=== PATIENT | female | born 1985 | race Caucasian/White ===

== ENCOUNTER 2019-10-08 22:18 | Emergency (ER) | payer OTHER, SELFPAY ==
--- NOTE | ~2019-10-08 | XR_ITS ---
EXAMINATION: XR lumbar spine 2-3V DATE: 10/08/2019 23:36 INDICATION: Low back pain TECHNIQUE: Anteroposterior and lateral views of the lumbar spine, and cone-down lateral view of the l umbosacral junction were obtained. COMPARISON: MRI, 06/30/2014 FINDINGS: Is provided heights and alignment are normal. There is severe loss of intervertebral disc s pace height at L5-S1. Mild loss of intervertebral disc space height is present at L3-4. There is no f racture. Small degenerative osteophytes project from the anterior endplates of multiple vertebral bod ies. IMPRESSION: 1. Severe lumbar spondylosis at L5-S1 without acute findings or significant interval change. Reviewed, dictated and finalized at location A. IMPRESSION: 1. Severe lumbar spondylosis at L5-S1 without acute findings or significant int erval change.
--- NOTE | ~2019-10-08 | XR_ITS ---
EXAMINATION: XR knee LT min 4V DATE: 10/08/2019 23:36 INDICATION: Left knee pain TECHNIQUE: Four views of the left knee were obtained. COMPARISON: None. FINDINGS: Alignment is normal. No fracture or osteochondral lesion. There is mild tricompartmental os teoarthritis characterized by tiny marginal osteophytes. No joint effusion/synovitis. Soft tissues a re unremarkable. IMPRESSION: 1. No acute osseous abnormality. Reviewed, dictated and finalized at location A.
[2019-10-08 22:22] VITALS: BP 148/98; PULSE 78; RESP 18; TEMP 36.9; O2SAT 97
--- NOTE | 2019-10-08 23:07 | PC.NURSE ---
Received report from Vanesa, assumed care of this patient at this time.
[2019-10-08 23:09] LABS: Add Urine Microscopic? YES; Appearance Urine Clear (Clear); Bilirubin Urine Negative (Negative); Blood Urine Negative (Negative); Color Urine Straw (Yellow); Glucose Urine UA Negative (Negative); Ketones Urine Negative (Negative); Leukocyte Esterase Ur 2+ LEU/UL (Negative); Mucus Urine Rare /lpf; Nitrate Urine Negative (Negative); Protein Urine Negative (Negative); RBC Urine 0-2 /hpf (0-2); Specific Grav Ur 1.017 (1.001-1.035); Squamous Epithelial Cell Urine Moderate /hpf (Few); Urobilinogen Urine Negative mg/dL (<2.0); WBC Urine 0-3 /hpf
[2019-10-09 00:15] VITALS: BP 132/80; PULSE 70; RESP 18; O2SAT 98
--- NOTE | 2019-10-09 00:37 | ED.BACK ---
HPI - Back Pain/Injury General Chief Complaint: Back Pain/Injury Stated Complaint: lower back pain Time Seen by Provider: 10/08/19 22:28 Source: RN notes reviewed History of Present Illness HPI Narrative: Patient presents emergency department from home for low back pain. Patient states symptoms began 3 days ago. States the pain is in the bilateral lower back worse on the right than the left. Patient denies any known trauma or injury. States pain is worse with movement and bending. Patient does state that she had a history of back surgery in her lower back to remove 2 discs approximately 2 years ago and history of sciatica on the right. States that she will have flareups of her back pain intermittently she denies any fevers or chills abdominal pain numbness or tingling of the extremities bowel or bladder incontinence or any other symptoms. States she is taken no previous pain medication for the symptoms.. Patient does states she is been having some pain in her left knee over the past day and believes it may be secondary to walking differently secondary to her back pain denies any trauma or injury to the knee Related Data Home Medications Medication Instructions Recorded Confirmed Adult One Daily Multivitamin 1 tablet PO DAILY 10/08/19 10/08/19 albuterol sulfate INHALATION PRN 10/08/19 beclomethasone dipropionate [Qvar 2 inh INHALATION DAILY 10/08/19 10/08/19 RediHaler] calcium carbonate-vitamin D3 1 tablet PO DAILY 10/08/19 10/08/19 cyclobenzaprine 10 mg PO PRN 10/08/19 10/08/19 topiramate 50 mg PO HS 10/08/19 10/08/19 Allergies Allergy/AdvReac Type Severity Reaction Status Date / Time Penicillins Allergy Mild Rash Verified 12/07/18 00:03 Review of Systems Review of Systems: Narrative: Gen.: Denies fevers or chills ENT: Denies congestion Respiratory: Denies shortness of breath or cough CV: Denies chest pain or palpitations GI: Denies abdominal pain nausea, emesis or diarrhea denies bowel or bladder incontinence Musculoskeletal: See HPI Neuro: Denies numbness, tingling, weakness or focal weakness Skin: Denies rash Except as documented, all other systems reviewed and negative PMFSH Past Medical History Medical History (Updated 10/09/19 @ 00:41 by Eric Alves DO) Sciatica Surgical History Surgical History (Updated 10/09/19 @ 00:39 by Eric Alves DO) Previous back surgery Social History Social History (Updated 10/09/19 @ 00:38 by Eric Alves DO) Smoking status: Never smoker Exam Narrative: Exam Narrative: APPEARANCE: No acute distress, nontoxic, resting in bed Eyes: EOMI HEENT: Normocephalic, atraumatic, CV: Regular rate and rhythm without murmur RESPIRATORY: No respiratory distress. Clear to auscultation bilaterally. Abdomen: Soft and nontender, no rebound or guarding MUSCULOSKELETAl: Moves all extremities, no clubbing cyanosis or edema left knee is mildly tender over the lateral and anterior aspect, no swelling or ecchymosis no tenderness over the medial or posterior aspect, pain with flexion greater than 45 degrees, dorsalis pedis pulse 2+ neurovascular intact Back: No midline lumbar tenderness to palpation or step-off, tender to palpation over bilateral paravertebral muscles L3-5 , pain increased with forward flexion NEURO: Awake and alert. Following commands, speech normal, no focal deficits, muscle strength 5 out of 5 bilateral lower extremities, bilateral patellar reflex 2+ SKIN:: Warm, dry. Normal Color no rash or lesions Course Course Emergency Course: Discussed with patient results of workup and diagnosis. Discussed need for follow-up with primary care, proper use of medication, and reasons to return to the emergency department. Patient understands and agrees to current treatment plan Vital Signs Vital signs: Vital Signs Temperature 98.5 F 10/08/19 22:22 Pulse Rate 78 10/08/19 22:22 Respiratory Rate 18 10/08/19 22:22 Blood Pressure 148/98 H 10/08/19
== END 2019-10-09 01:03 | disposition home or self-care (01) ==
PROVIDERS: Emergency Provider Emergency Medicine; PCP Emergency Medicine
DX: M54.5 Low back pain (principal); M25.562 Pain in left knee
CPT/HCPCS: 72100; 73564; 81001; 81025; 99284; A9270

== ENCOUNTER 2020-01-20 16:52 | Emergency (ER) | payer OTHER, SELFPAY ==
[2020-01-20 17:43] VITALS: BP 147/80; PULSE 71; RESP 18; TEMP 36.5; O2SAT 100
--- NOTE | 2020-01-20 17:49 | ECG_ITS ---
Measurements Intervals [place] Rate: 65 P: 35 AL: 189 QRS: 23 QRSD: 90 T: 15 QT: 382 QTc: 398 Interpretive Statements SINUS RHYTHM NORMAL ECG Electronically Signed On 01-21-2020 6:50:40 CDT by Efrain Vyas D.O.
[2020-01-20 18:07] LABS: Basophils Percent Auto 0.2 % (0.2-1.2); Eosinophils Absolute Auto 0.1 K/mm3 (0-0.3); Eosinophils Percent Auto 0.6 % (0-4.4); Hematocrit 35.9 % (37.0-47.0); Hemoglobin 11.8 g/dL (12.0-15.0); Immature Granulocyte Absolute 0.02 K/mm3 (0.00-0.031); Immature Granulocyte Percent A 0.2 % (0-0.5); Lymphocytes Absolute Auto 1.94 K/mm3 (0.9-3.2); Lymphocytes Percent Auto 23.3 % (18.3-44.2); Mean Corpuscular HGB Conc 32.9 g/dl (32-36); Mean Corpuscular Hemoglobin 29.4 pg (26-34); Mean Corpuscular Volume 89.3 fl (80-100); Mean Platelet Volume 10.2 fl (7.4-10.4); Monocytes Absolute Auto 0.5 K/mm3 (0.1-0.6); Monocytes Percent Auto 5.8 % (2.6-8.5); Neutrophils Absolute Auto 5.8 K/mm3 (1.3-6.7); Neutrophils Percent Auto 69.9 % (45.5-73.1); Platelet Count Result 294 k/mm3 (150-375); Red Blood Count 4.02 M/mm3 (4.2-5.4); Red Cell Distribution Width 13.3 % (11.5-14.5); White Blood Count 8.3 K/mm3 (4.5-10.0)
[2020-01-20 18:20] LABS: Anion Gap 10 mmol/L (8-16); Blood Urea Nitrogen 13 mg/dL (7-17); Calcium 9.5 mg/dL (8.4-10.2); Carbon Dioxide 28 mmol/L (22-30); Chloride 102 mmol/L (98-107); Estimated CRCL calculation 102 ml/min; Estimated Glomerular Filt Rate > 60; Glucose 102 mg/dL (65-105); Sodium 140 mmol/L (137-145)
--- NOTE | 2020-01-20 20:10 | ED.DIZZY ---
HPI - Dizziness General Chief Complaint: Dizziness Stated Complaint: head injury on fri, dizzy, nauseated, blurred visi Time Seen by Provider: 01/20/20 19:55 History of Present Illness HPI Narrative: 34 yo female with h/o migraine, asthma presents to the ED for nausea, vomiting, and headache. She has had a headache since yesterday. This started after a syncopal episode at work. This was preceded by light headedness. She did strike her head in the fall. The headache is similar to previous migraines. Related Data Home Medications Medication Instructions Recorded Confirmed Adult One Daily Multivitamin 1 tablet PO DAILY 10/08/19 10/08/19 albuterol sulfate INHALATION PRN 10/08/19 beclomethasone dipropionate [Qvar 2 inh INHALATION DAILY 10/08/19 10/08/19 RediHaler] calcium carbonate-vitamin D3 1 tablet PO DAILY 10/08/19 10/08/19 cyclobenzaprine 10 mg PO PRN 10/08/19 10/08/19 topiramate 50 mg PO HS 10/08/19 10/08/19 Allergies Allergy/AdvReac Type Severity Reaction Status Date / Time Penicillins Allergy Mild Rash Verified 01/20/20 17:47 Review of Systems Review of Systems: All systems reviewed & are unremarkable except as noted in HPI and below Constitutional: Constitutional: Denies chills and Denies fever(s) Eyes: Eyes: Reports photophobia ENT: Reports dizziness Cardiovascular: Cardiovascular: Denies chest pain Respiratory: Respiratory: Denies dyspnea Gastrointestinal: Gastrointestinal: Denies abdominal pain and Reports nausea Musculoskeletal: Musculoskeletal: Reports back pain Neurologic: Reports dizziness, Reports syncope, Reports headache(s) and Denies weakness PMFSH Past Medical History Medical History Sciatica Surgical History Surgical History Previous back surgery Social History Social History Smoking status: Never smoker Gender identity (if verbalized by the patient): Female Exam Const: General: no acute distress and alert Nutritional Appearance: obese Orientation/consciousness: patient oriented x3 HENMT: Head: normal to inspection Ears: TM's normal bilaterally Eyes: Pupils: Equal, round and reactive pupils present EOM: EOMs intact bilaterally Neck: Neck: normal visual inspection Resp: Effort & Inspection: normal respiratory effort Auscultation: clear to auscultation bilaterally Cardio: Rate: regular rate Rhythm: regular rhythm Skin: General skin exam: normal color Neuro: General: patient oriented x3, moves all extremities, no focal motor deficits and CN's II-XI intact bilaterally Cranial nerves: Yes Nystagmus not present Speech: normal speech Gait exam (Neuro): Normal gait present Extrem: General: normal to inspection Course Vital Signs Vital signs: Vital Signs Temperature 36.5 C 01/20/20 17:43 Pulse Rate 71 01/20/20 17:43 Respiratory Rate 18 01/20/20 17:43 Blood Pressure 147/80 H 01/20/20 17:43 Pulse Oximetry 100 01/20/20 17:43 Temperature 36.7 C 01/20/20 22:22 Pulse Rate 60 01/20/20 22:22 Respiratory Rate 16 01/20/20 22:22 Blood Pressure 131/82 01/20/20 22:22 Pulse Oximetry 100 01/20/20 22:22 MDM - Dizziness MDM Narrative Medical decision making narrative: Feeling better after fluids and meclizine Medical Records Attestation: I reviewed the patient's medical records. Lab Data Attestation: I reviewed the patient's lab results. Result diagrams: 01/20/20 17:51 01/20/20 17:51 Labs: Lab Results 01/20/20 01/20/20 Range/Units 17:51 17:51 WBC 8.3 (4.5-10.0) K/mm3 RBC 4.02 L (4.2-5.4) M/mm3 Hgb 11.8 L (12.0-15.0) g/dL Hct 35.9 L (37.0-47.0) % MCV 89.3 (80-100) fl MCH 29.4 (26-34) pg MCHC 32.9 (32-36) g/dl RDW 13.3 (11.5-14.5) % Plt Count 294 (150-375) k/mm3 MPV 10.2 (7.4-10.4)
[2020-01-20] MEDS: SODIUM CHLORIDE 0.9% IV 1,000 ML 999 ML IV CONT (20:40)
[2020-01-20] MEDS: MECLIZINE HCL 25 MG TABLET PO (20:44)
[2020-01-20 22:03] VITALS: BP 131/80; PULSE 60
[2020-01-20 22:04] VITALS: BP 131/79; BP 132/84; PULSE 59; PULSE 60
[2020-01-20 22:22] VITALS: BP 131/82; PULSE 60; RESP 16; TEMP 36.7; O2SAT 100
== END 2020-01-20 22:22 | disposition home or self-care (01) ==
PROVIDERS: Emergency Medicine; Emergency Provider Emergency Medicine; PCP Emergency Medicine
DX: R55 Syncope and collapse (principal)
CPT/HCPCS: 36415; 80048; 81025; 85025; 93005; 96360; 99284; A9270; J7030

== ENCOUNTER 2020-02-05 17:58 | Emergency (ER) | payer OTHER, SELFPAY ==
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
[2020-02-05 18:06] VITALS: BP 138/98; PULSE 79; RESP 16; TEMP 35.8; O2SAT 100
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
[2020-02-05] MEDS: KETOROLAC (*BKC) 60 MG/2 ML VIAL IM (19:00)
== END 2020-02-05 19:01 | disposition home or self-care (01) ==
LOC: ANHED 18:35
PROVIDERS: Emergency Provider Emergency Medicine; PCP Emergency Medicine
DX: S49.92XA Unspecified injury of left shoulder and upper arm, initial encounter (principal); X58.XXXA Exposure to other specified factors, initial encounter
CPT/HCPCS: 73030; 96372; 99283; J1885

== ENCOUNTER 2020-04-25 16:04 | Emergency (ER) | payer OTHER, SELFPAY ==
--- NOTE | ~2020-04-25 | US_ITS ---
EXAMINATION: US venous doppler LE DATE: 04/25/2020 17:33 INDICATION: Right lower limb pain TECHNIQUE: Grayscale ultrasound images without and with compression and Doppler ultrasound images of the right lower extremity veins were obtained. COMPARISON: 12/27/2013 FINDINGS: The visualized portions of right common femoral vein, profunda (deep) femoral vein, femoral vein, pop liteal vein, peroneal trunk, posterior tibial veins, peroneal veins, gastrocnemius vein and greater s aphenous vein outflow are patent. IMPRESSION: 1. No deep venous thrombosis in the right lower limb. Reviewed, dictated and finalized at location A. [employer]
[2020-04-25 16:06] VITALS: BP 151/109; PULSE 87; RESP 20; TEMP 36.3; O2SAT 100
--- NOTE | 2020-04-25 18:04 | ED.GENADULT ---
HPI - General Adult General Chief complaint: Extremity Injury, Lower <Brianne Ramesh PA-C - Last Filed: 04/25/20 19:21> Stated complaint: Leg painx 4 days <Brianne Ramesh PA-C - Last Filed: 04/25/20 19:21> Time Seen by Provider: 04/25/20 16:12 <Brianne Ramesh PA-C - Last Filed: 04/25/20 19:21> Source: patient <DEVYN Shepard Last Filed: 04/25/20 19:21> Mode of arrival: ambulatory <Brianne Ramesh PA-C - Last Filed: 04/25/20 19:21> Limitations: no limitations <DEVYN Shepard Last Filed: 04/25/20 19:21> History of Present Illness HPI narrative: Patient presents with chief complaint of pain to her right lower leg over the past 4 days. Patient states at 1 point in time she did notice a pop to her right knee that continued to ambulate. Patient states this time has no nausea she has developed more pain in her right thigh and her right calf but states that she does have some discomfort that extends all the way down her right leg. Patient states that she does have some low back disc disease that is chronic. She states that at times she does have some radicular symptoms but it generally resolves on its own. Patient reports feeling tightness more so in the right calf and lower leg. Patient denies any history of DVTs or shortness of breath or chest pain. <Brianne Ramesh PA-C - Last Filed: 04/25/20 19:21> Related Data Home medications: Home Medications Medication Instructions Recorded Confirmed Adult One Daily Multivitamin 1 tablet PO DAILY 10/08/19 10/08/19 albuterol sulfate INHALATION PRN 10/08/19 beclomethasone dipropionate [Qvar 2 inh INHALATION DAILY 10/08/19 10/08/19 RediHaler] calcium carbonate-vitamin D3 1 tablet PO DAILY 10/08/19 10/08/19 cyclobenzaprine 10 mg PO PRN 10/08/19 10/08/19 topiramate 50 mg PO HS 10/08/19 10/08/19 <Brianne Ramesh PA-C - Last Filed: 04/25/20 19:21> Allergies/adverse reactions: Allergies Allergy/AdvReac Type Severity Reaction Status Date / Time Penicillins Allergy Mild Rash Verified 01/20/20 17:47 <Brianne Ramesh PA-C - Last Filed: 04/25/20 19:21> Review of Systems Review of Systems: Narrative: CONSTITUTIONAL: Denies fever, chills, or sweats. EYES: Denies visual changes, redness, or discharge. ENT: Denies rhinorrhea, congestion, sore throat, or otalgia. CARDIOVASCULAR: Denies chest pain, palpitations, or edema. RESPIRATORY: Denies cough or dyspnea. GASTROINTESTINAL: Denies abdominal pain, nausea, vomiting, or diarrhea. GENITOURINARY: Denies dysuria or hematuria. SKIN: Denies rash or itching. MUSCULOSKELETAL: Reports right lower leg pain denies back pain, joint pain, or myalgia. NEUROLOGIC: Denies headache, numbness, dizziness, or weakness. PSYCHIATRIC: Denies anxiety or depression. <Brianne Ramesh PA-C - Last Filed: 04/25/20 19:21> PMFSH Past Medical History Medical History: Medical History Sciatica <Brianne Ramesh PA-C - Last Filed: 04/25/20 19:21> Surgical History Surgical History: Surgical History Previous back surgery <Brianne Ramesh PA-C - Last Filed: 04/25/20 19:21> Social History Social History: Social History Smoking status: Never smoker Gender identity (if verbalized by the patient): Female <Brianne Ramesh PA-C - Last Filed: 04/25/20 19:21> Exam Narrative: Exam Narrative: GENERAL: Well-appearing, well-nourished, and in no acute distress. HEAD: Normocephalic, atraumatic. EYES: PERRLA and EOMI. NECK: Supple. No adenopathy or masses. CHEST: Clear to auscultation. No respiratory distress. No wheezes rales or rhonchi HEART: Regular rate and rhythm. EXTREMITIES: Patient has large legs with positive varicosities. There is not discrepancy noticed between right and left leg. Patient reports pain with
[2020-04-25 18:52] VITALS: BP 148/88; PULSE 84; RESP 18; O2SAT 100
== END 2020-04-25 18:54 | disposition home or self-care (01) ==
PROVIDERS: Emergency Provider Emergency Medicine; PCP Emergency Medicine
DX: M79.661 Pain in right lower leg (principal)
CPT/HCPCS: 93971; 99284

== ENCOUNTER 2020-07-14 00:07 | Emergency (ER) | payer OTHER, SELFPAY ==
--- NOTE | ~2020-07-14 | CT_ITS ---
EXAMINATION: CT brain wo con DATE: 07/14/2020 01:07 INDICATION: Headache. Head injury. TECHNIQUE: Computed tomography (CT) of the head was performed without intravenous contrast. Sagittal and coronal reconstructions were performed. The mA was adjusted according to patient size. Iterative reconstruction technique was employed. The dose-length product was 605.33 mGy-cm. COMPARISON: Brain MR dated 11/09/2014 FINDINGS: No fracture. No acute intracranial hemorrhage, acute infarction or abnormal extra axial fluid collect ion. Ventricles are normal and symmetric. No mass/mass effect. The orbits, paranasal sinuses and mast oid air cells are normal. IMPRESSION: 1. Normal head CT. Reviewed, dictated and finalized at location A. IMPRESSION: 1. Normal head CT.
[2020-07-14 00:10] VITALS: BP 146/106; PULSE 73; RESP 16; TEMP 36.6; O2SAT 100
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
[2020-07-14] MEDS: ACETAMINOPHEN 500 MG TABLET 1000 MG PO (00:55)
--- NOTE | 2020-07-14 01:56 | PC.NURSE ---
EDPA advised of pt complaint of persistent and pain and states she will place orders for pain medications.
[2020-07-14 02:03] VITALS: BP 135/51; PULSE 73; RESP 20; TEMP 36.6; O2SAT 100
--- NOTE | 2020-07-14 02:06 | PC.NURSE ---
Pt ambulated in strong to restroom to provide urine for test.
[2020-07-14] MEDS: KETOROLAC (*BKC) 60 MG/2 ML VIAL IM (02:20)
== END 2020-07-14 02:40 | disposition home or self-care (01) ==
PROVIDERS: Emergency Provider Emergency Medicine; PCP Emergency Medicine
DX: S09.90XA Unspecified injury of head, initial encounter (principal); J45.909 Unspecified asthma, uncomplicated; W22.8XXA Striking against or struck by other objects, initial encounter
CPT/HCPCS: 70450; 81025; 96372; 99284; A9270; J1885

== ENCOUNTER 2020-11-01 16:25 | Emergency (ER) | payer OTHER, SELFPAY ==
--- NOTE | ~2020-11-01 | XR_ITS ---
EXAMINATION: [id number]_[id number] EXAM DATE: 11/01/2020 17:22 INDICATION: Initial encounter following injury, with pain of the right shoulder, arm pain. Right fin garfield tingling and numbness. TECHNIQUE: Cervical spine frontal, lateral, lateral swimmers, and open-mouth odontoid projections. There is no prior study for comparison. FINDINGS: Straightening of normal cervical lordosis could be positional or spasm. There is no eviden ce of acute cervical fracture. The odontoid process is intact. Pre-dens space is normal. Preverteb ral soft tissue is normal. There are no soft tissue abnormalities identified. Vertebral body and di sc heights are well-maintained. The vertebral bodies are aligned. No appreciable arthropathy. IMPRESSION: Mild reversal normal cervical lordosis, could indicate muscle spasm. Otherwise unremarkab le exam. Reviewed, dictated and finalized at location A. IMPRESSION: Mild reversal normal cervical lordosis, could indicate muscle spasm . Otherwise unremarkable exam.
--- NOTE | ~2020-11-01 | CT_ITS ---
EXAMINATION: CT cervical spine [facility] EXAM DATE: 11/01/2020 18:10 INDICATION: Neck pain, paresthesias TECHNIQUE: Spiral CT of the cervical spine was performed without contrast. Axial images were reviewe d. Coronal and sagittal reformatted images cervical spine were also reviewed. The dose-length produc t (DLP) for this examination was 463.73 mGy-cm. The exposure was tailored according to patient size (auto mA exposure control), and iterative reconstruction (ASIR) was used as additional dose reduction technique. Correlation is made to cervical x-ray same date. FINDINGS: There is mild reversal of the normal cervical lordosis which may be positional or spasm. Th ere is no evidence of acute cervical fracture. The odontoid process is intact. Pre-dens space is no rmal. Incomplete posterior fusion of C1, congenital variant. Prevertebral soft tissue is normal. The re are no soft tissue abnormalities identified. Vertebral body and disc heights are well-maintained. The vertebral bodies are aligned. Level by level evaluation: C2-C3: Disc does not extend beyond the endplate margin. Uncovertebral joint arthropathy: None. Facet joint arthropathy: None. Neural foraminal stenosis: No stenosis. Central canal stenosis: No stenosis. C3-C4: Disc does not extend beyond the endplate margin. Uncovertebral joint arthropathy: None. Facet joint arthropathy: None. Neural foraminal stenosis: No stenosis. Central canal stenosis: No stenosis. C4-C5: Disc does not extend beyond the endplate margin. Uncovertebral joint arthropathy: None. Facet joint arthropathy: None. Neural foraminal stenosis: No stenosis. Central canal stenosis: No stenosis. C5-C6: Disc does not extend beyond the endplate margin. Uncovertebral joint arthropathy: None. Facet joint arthropathy: Mild bilateral. Neural foraminal stenosis: No stenosis. Central canal stenosis: No stenosis. C6-C7: Disc does not extend beyond the endplate margin. Uncovertebral joint arthropathy: None. Facet joint arthropathy: Mild left. Neural foraminal stenosis: No stenosis. Central canal stenosis: No stenosis. C7-T1: Disc does not extend beyond the endplate margin. Uncovertebral joint arthropathy: None. Facet joint arthropathy: Mild left. Neural foraminal stenosis: No stenosis. Central canal stenosis: No stenosis. IMPRESSION: 1. Mild reversal normal cervical lordosis, possible spasm. 2. Mild lower cervical facet arthropathy. No stenosis. Reviewed, dictated and finalized at location A.
--- NOTE | ~2020-11-01 | XR_ITS ---
EXAMINATION: XR shoulder RT min 2V EXAM DATE: 11/01/2020 17:21 INDICATION: Right shoulder, arm pain. Right finger numbness and tingling. TECHNIQUE: The following right shoulder projections obtained: frontal projection with internal rotati on, frontal projection with external rotation, Grashey, and scapular Y view (4+ views). There is no prior study for comparison. FINDINGS: There is mild right acromioclavicular joint primary osteoarthritis. There are no acute frac tures or dislocations identified. There is no subcutaneous gas. The soft tissue is unremarkable. There are no radiopaque foreign bodies. IMPRESSION: Mild right acromioclavicular osteoarthritis. Reviewed, dictated and finalized at location A.
[2020-11-01 16:36] VITALS: BP 139/99; PULSE 75; RESP 16; TEMP 36.8; O2SAT 97
[2020-11-01 16:53] VITALS: BP 139/99; PULSE 75; RESP 20; TEMP 36.7; O2SAT 99
--- NOTE | 2020-11-01 17:47 | ED.EXTPRO ---
HPI - Extremity Problem General Chief complaint: Extremity Problem,Nontraumatic Stated complaint: right arm and shoulder pain Time Seen by Provider: 11/01/20 16:51 Source: patient Mode of arrival: ambulatory Limitations: no limitations History of Present Illness HPI Narrative: This is a 34 year old female that presents to the ER for right sided neck pain present over the last 5 days. No known injury or trauma. Reports the pain radiates into her shoulder. Associated with tingling of the right arm. Also reports weakness in the right arm. Denies numbness. Related Data Home Medications Medication Instructions Recorded Confirmed Adult One Daily Multivitamin 1 tablet PO DAILY 10/08/19 10/08/19 albuterol sulfate INHALATION PRN 10/08/19 beclomethasone dipropionate [Qvar 2 inh INHALATION DAILY 10/08/19 10/08/19 RediHaler] calcium carbonate-vitamin D3 1 tablet PO DAILY 10/08/19 10/08/19 cyclobenzaprine 10 mg PO PRN 10/08/19 10/08/19 topiramate 50 mg PO HS 10/08/19 10/08/19 Allergies Allergy/AdvReac Type Severity Reaction Status Date / Time Penicillins Allergy Mild Rash Verified 11/01/20 16:55 Review of Systems Review of Systems: Narrative: CONSTITUTIONAL: Denies fever SKIN: Denies rash MUSCULOSKELETAL: Reports joint pain, and myalgia. NEUROLOGIC: Reports weakness. Denies numbness All systems reviewed & are unremarkable except as noted in HPI and below PMFSH Past Medical History Medical History (Updated 11/01/20 @ 19:31 by Sarah Javier PA-C) History of asthma Sciatica Surgical History Surgical History Previous back surgery Social History Social History Smoking status: Never smoker Gender identity (if verbalized by the patient): Female Exam Narrative: Exam Narrative: GENERAL: Well-appearing, obese, and in no acute distress. HEAD: Normocephalic, atraumatic. EYES: EOMI. CHEST: Clear to auscultation. No respiratory distress. No wheezes rales or rhonchi HEART: Regular rate and rhythm. No murmur heard. Normal peripheral pulses. EXTREMITIES: Normal range of motion, except decreased active ROM in the right shoulder above 90 degrees. No edema. Strength 5/5 LUE, 4/5 RUE. Normal radial pulses. Normal sensation SKIN: Warm, dry, no rash. NEURO: No focal deficits. Alert and oriented x3. PSYCH: Normal mood and affect Course Vital Signs Vital signs: Vital Signs Temperature 98.3 F 11/01/20 16:36 Pulse Rate 75 11/01/20 16:36 Respiratory Rate 16 11/01/20 16:36 Blood Pressure 139/99 H 11/01/20 16:36 Pulse Oximetry 97 11/01/20 16:36 Temperature 98.0 F 11/01/20 16:53 Pulse Rate 75 11/01/20 16:53 Respiratory Rate 20 11/01/20 16:53 Blood Pressure 139/99 H 11/01/20 16:53 Pulse Oximetry 99 11/01/20 16:53 MDM - Extremity (Nontraumatic) MDM Narrative Medical decision making narrative: Patient presents the emergency department for right-sided neck pain present over the last 5 days. No recent injury or trauma. Patient does note some tingling down the right arm. Patient's strength is noted to be mildly reduced on the right side compared to the left. It does seem like her symptoms are mostly due to muscle spasm. She reports relief with Toradol and Valium. CT scan of the cervical spine shows mild reversal of normal cervical lordosis consistent with muscle spasm. Shows mild lower cervical facet arthropathy, no stenosis. Patient was updated on case findings. She is stable and felt appropriate for further outpatient evaluation. She is to follow-up with her primary care doctor. She was given warnings to return to the ER Imaging Data Radiologist's impression: ITS Impressions Shoulder X-Ray 11/01/20 17:26 IMPRESSION: Mild right acromioclavicular osteoarthritis. Cervical Spine X-Ray 11/01/20 17:29 IMPRESSION: Mild reversal normal cervical lordosis, could in
[2020-11-01] MEDS: KETOROLAC (*BKC) 60 MG/2 ML VIAL IM (18:20)
[2020-11-01] MEDS: ACETAMINOPHEN 500 MG TABLET 1000 MG PO (18:20)
[2020-11-01] MEDS: diazePAM INJ (*CRX) 10 MG/2 ML SYRINGE 5 MG IM (18:21)
== END 2020-11-01 19:37 | disposition home or self-care (01) ==
PROVIDERS: Emergency Provider Emergency Medicine
DX: M54.2 Cervicalgia (principal); R25.2 Cramp and spasm; J45.909 Unspecified asthma, uncomplicated
CPT/HCPCS: 72040; 72125; 73030; 96372; 99284; A9270; J1885; J3360

== ENCOUNTER 2021-02-14 10:37 | Emergency (ER) | payer OTHER, SELFPAY ==
--- NOTE | 2021-02-14 11:06 | PC.NURSE ---
pts family states he is going to take pt to [facility] because they are not very busy there
== END 2021-02-14 11:06 | disposition left against medical advice (07) ==
DX: Z53.21 Procedure and treatment not carried out due to patient leaving prior to being seen by health care provider (principal)
CPT/HCPCS: 99199

== ENCOUNTER 2021-05-02 02:46 | Emergency (ER) | payer OTHER, SELFPAY ==
[2021-05-02 02:51] VITALS: BP 185/126; PULSE 88; RESP 18; TEMP 36.4; O2SAT 98
[2021-05-02 02:54] VITALS: BP 193/122
[2021-05-02] MEDS: MORPHINE SULFATE (*CRX) 4 MG/ML INJ IV PUSH (06:19)
[2021-05-02 06:40] LABS: Basophils Percent Auto 0.3 % (0.2-1.2); Eosinophils Absolute Auto 0.1 K/mm3 (0-0.3); Eosinophils Percent Auto 1.1 % (0-4.4); Hemoglobin 10.3 g/dL (12.0-15.0); Immature Granulocyte Absolute 0.05 K/mm3 (0.00-0.031); Immature Granulocyte Percent A 0.7 % (0-0.5); Lymphocytes Absolute Auto 2.59 K/mm3 (0.9-3.2); Lymphocytes Percent Auto 35.9 % (18.3-44.2); Mean Corpuscular HGB Conc 32.2 g/dl (32-36); Mean Corpuscular Hemoglobin 28.7 pg (26-34); Mean Corpuscular Volume 89.1 fl (80-100); Mean Platelet Volume 9.8 fl (7.4-10.4); Monocytes Absolute Auto 0.5 K/mm3 (0.1-0.6); Monocytes Percent Auto 7.1 % (2.6-8.5); Neutrophils Percent Auto 54.9 % (45.5-73.1); Platelet Count Result 306 k/mm3 (150-375); Red Blood Count 3.59 M/mm3 (4.2-5.4); Red Cell Distribution Width 13.4 % (11.5-14.5); White Blood Count 7.2 K/mm3 (4.5-10.0)
[2021-05-02 06:49] LABS: Add Urine Microscopic? NO; Appearance Urine Clear (Clear); Bilirubin Urine Negative (Negative); Blood Urine Negative (Negative); Color Urine Yellow (Yellow); Glucose Urine UA Negative (Negative); Ketones Urine Negative (Negative); Leukocyte Esterase Ur Negative LEU/UL (Negative); Nitrate Urine Negative (Negative); Protein Urine Negative (Negative); Urobilinogen Urine Negative mg/dL (<2.0)
[2021-05-02 06:54] LABS: Alanine Aminotransferase 24 U/L (4-35); Albumin Level 4.1 g/dL (3.5-5.1); Alkaline Phosphatase 71 U/L (38-126); Anion Gap 10 mmol/L (8-16); Aspartate Amino Transferase 32 U/L (14-36); Bilirubin,Total 0.5 mg/dL (0.2-1.3); Blood Urea Nitrogen 12 mg/dL (7-17); Calcium 8.2 mg/dL (8.4-10.2); Carbon Dioxide 20 mmol/L (22-30); Chloride 109 mmol/L (98-107); Estimated CRCL calculation 133 ml/min; Estimated Glomerular Filt Rate > 60; Glucose 96 mg/dL (65-110); Lipase 44 U/L (23-300); Potassium 4.1 mmol/L (3.4-5.0); Sodium 139 mmol/L (137-145)
[2021-05-02] MEDS: ONDANSETRON INJ 4 MG/2 ML VIAL IV PUSH (06:55)
--- NOTE | 2021-05-02 07:13 | ED.GENADULT ---
HPI - General Adult General Chief complaint: Abdominal Pain Stated complaint: back pain, abd bloating Time Seen by Provider: 05/02/21 05:19 History of Present Illness HPI narrative: Patient is a 35-year-old female who presents ER with abdominal pain and bloating. Reports she began her menstrual period 2 days ago. She has had some larger clots than typical for her. Denies hemorrhage. No lightheadedness. Cramping has become diffuse in the abdomen and she feels bloated. Tonight her saw her having some jerking in her arms while she slept. She immediately woke her up. She is oriented x3 at that time. No history of seizures. No tongue biting. Related Data Home Medications Medication Instructions Recorded Confirmed Adult One Daily Multivitamin 1 tablet PO DAILY 10/08/19 10/08/19 albuterol sulfate INHALATION PRN 10/08/19 beclomethasone dipropionate [Qvar 2 inh INHALATION DAILY 10/08/19 10/08/19 RediHaler] calcium carbonate-vitamin D3 1 tablet PO DAILY 10/08/19 10/08/19 cyclobenzaprine 10 mg PO PRN 10/08/19 10/08/19 topiramate 50 mg PO HS 10/08/19 10/08/19 Allergies Allergy/AdvReac Type Severity Reaction Status Date / Time Penicillins Allergy Mild Rash Verified 11/01/20 16:55 Review of Systems Review of Systems: All systems reviewed & are unremarkable except as noted in HPI and below Constitutional: Constitutional: Denies chills, Denies fever(s) and Denies weakness ENT: Denies nasal congestion and Denies sore throat Gastrointestinal: Gastrointestinal: Reports abdominal pain, Reports bloating, Denies diarrhea, Reports nausea and Denies vomiting Genitourinary: Genitourinary: Denies abnormal vaginal bleeding, Denies nocturia, Denies dysuria, Denies flank pain and Denies vaginal discharge Musculoskeletal: Musculoskeletal: Reports back pain and Denies muscle cramps Neurologic: Denies focal weakness and Denies numbness PMFSH Past Medical History Medical History (Updated 05/02/21 @ 07:25 by Babak Cabrera MD) History of asthma Sciatica Surgical History Surgical History Previous back surgery Social History Social History Smoking status: Never smoker Gender identity (if verbalized by the patient): Female Exam Narrative: GENERAL: Well-appearing, well-nourished, and in no acute distress. HEAD: Normocephalic, atraumatic. EYES: PERRL and EOMI. ENT: Mucous membranes moist. CHEST: Clear to auscultation. No respiratory distress. HEART: Regular rate and rhythm. Normal peripheral pulses. ABDOMEN: Soft, mild diffuse tenderness without guarding, nondistended. EXTREMITIES: Normal range of motion. No edema. NEURO: Clear speech, no arm jerking. Alert and oriented x3. PSYCH: Normal mood and affect. Course Course Emergency Course: Reevaluation after morphine shows a soft nontender abdomen. No additional nausea. Feels much better. Labs unremarkable. Will discharge home. Recommend follow-up with PCP. Vital Signs Vital signs: Vital Signs Temperature 97.6 F 05/02/21 02:51 Pulse Rate 88 05/02/21 02:51 Respiratory Rate 18 05/02/21 02:51 Blood Pressure 185/126 H 05/02/21 02:51 Pulse Oximetry 98 05/02/21 02:51 Temperature 97.6 F 05/02/21 02:51 Pulse Rate 88 05/02/21 02:51 Respiratory Rate 18 05/02/21 02:51 Blood Pressure 193/122 H 05/02/21 02:54 Pulse Oximetry 98 05/02/21 02:51 Medical Decision Making Vital Signs Vital Signs: Vital Signs Temperature 97.6 F 05/02/21 02:51 Pulse Rate 88 05/02/21 02:51 Respiratory Rate 18 05/02/21 02:51 Blood Pressure 185/126 H 05/02/21 02:51 Pulse Oximetry 98 05/02/21 02:51 Temperature 97.6 F 05/02/21 02:51 Pulse Rate 88 05/02/21 02:51 Respiratory Rate 18 05/02/21 02:51 Blood Pressure 193/122 H 05/02/21 02:54 Pulse Oximetry 98 05/02/21 02:51 Lab Data Result diagrams:
[2021-05-02 07:48] VITALS: BP 130/95; PULSE 59; RESP 16
== END 2021-05-02 07:37 | disposition home or self-care (01) ==
PROVIDERS: Emergency Provider Emergency Medicine
DX: R10.30 Lower abdominal pain, unspecified (principal); G25.3 Myoclonus; J45.909 Unspecified asthma, uncomplicated
CPT/HCPCS: 36415; 80053; 81003; 81025; 83690; 85025; 96374; 96375; 99284; J2270; J2405

== ENCOUNTER 2022-01-08 13:12 | Emergency (ER) | payer OTHER, SELFPAY ==
[2022-01-08] VITALS (10 sets, daily range): BP systolic 120–154; BP diastolic 70–98; PULSE 56–79; RESP 14–23; TEMP 36.7; O2SAT 97–100
--- NOTE | ~2022-01-08 | CT_ITS ---
EXAMINATION: CT BRAIN W/O DATE: 01/08/2022 14:16 INDICATION: Headache. Hypertension. TECHNIQUE: Computed tomography (CT) of the head was performed without intravenous contrast. The dose- length product was 605.33 mGy-cm. Automated exposure control and iterative reconstruction technique w ere employed. COMPARISON: CT dated 07/14/2020 FINDINGS: Normal brain parenchymal volume for age. Normal marcos-white differentiation. No acute intrac ranial hemorrhage, infarction, mass or mass effect. No ventriculomegaly or midline shift. Midline sagittal images demonstrate a normal corpus callosum, c raniovertebral junction and sella turcica. Basilar cisterns are patent. Paranasal sinuses and mastoids are pneumatized. No depressed skull fractures. IMPRESSION: 1. No acute intracranial abnormality. Reviewed, dictated and finalized at location B.
--- NOTE | ~2022-01-08 | XR_ITS ---
EXAMINATION: XR chest 2V DATE: 01/08/2022 15:01 INDICATION: Dizziness. Nausea. TECHNIQUE: Frontal and lateral views of the chest were obtained. COMPARISON: Chest 2 views 11/09/2018 FINDINGS: The chest demonstrates clear lungs without pneumonia, pleural effusion, or pneumothorax. Th e heart size is normal. IMPRESSION: 1. No acute cardiopulmonary disease. Reviewed, dictated and finalized at location A.
--- NOTE | 2022-01-08 13:22 | ECG_ITS ---
Measurements Intervals [place] Rate: 69 P: 40 ME: 204 QRS: 38 QRSD: 86 T: 27 QT: 393 QTc: 421 Interpretive Statements SINUS RHYTHM BASELINE ARTIFACT- III BORDERLINE ECG NO PREVIOUS ECG AVAILABLE FOR COMPARISON Electronically Signed On 01-08-2022 16:16:35 CDT by Efrain Vyas D.O.
--- NOTE | 2022-01-08 13:49 | ED.GENADULT ---
HPI - General Adult General Chief complaint: Recheck/Abnormal Lab/Rx Stated complaint: high blood pressure x 3 days Time Seen by Provider: 01/08/22 13:35 History of Present Illness HPI narrative: 36-year-old morbidly obese female newly diagnosed with hypertension presents to the emergency room for evaluation of dizziness, nausea, and multiple elevated blood pressure readings. Patient states she was seen at her primary care physician's office last week and was started on losartan. Patient states that she has been experiencing the symptoms since starting her blood pressure medicine. Patient admits to buying a new blood pressure cuff from the pharmacy and has been taking her blood pressure 5 times a day. States that the blood pressure cuff is poorly fitting around her bicep where she has been taking her blood pressure cuff readings. states that he took a 1 blood pressure measurement around her forearm and found that her reading was much lower. Patient states the dizziness is worse with exertion and movement Related Data Home Medications Medication Instructions Recorded Confirmed Adult One Daily Multivitamin 1 tablet PO DAILY 10/08/19 10/17/21 albuterol sulfate 2.5 mg/3 mL inhalation PRN 10/08/19 10/17/21 (0.083 %) solution for nebulization beclomethasone dipropionate 80 2 inh inhalation DAILY 10/08/19 10/17/21 mcg/actuation HFA breath activated aerosol (Qvar RediHaler) baclofen 10 mg tablet 10 mg PO DAILY 10/17/21 10/17/21 tramadol 50 mg tablet 50 mg PO Q6H PRN Pain 10/17/21 10/17/21 cholecalciferol (vitamin D3) 50 01/08/22 mcg (2,000 unit) capsule fluticasone propionate 50 intranasal 01/08/22 mcg/actuation nasal spray,suspension losartan 25 mg tablet mg 01/08/22 meloxicam 15 mg tablet mg 01/08/22 topiramate 50 mg tablet mg 01/08/22 tramadol 50 mg tablet mg 01/08/22 Allergies Allergy/AdvReac Type Severity Reaction Status Date / Time Penicillins Allergy Mild Rash Verified 01/08/22 13:17 Review of Systems Review of Systems: CONSTITUTIONAL: Denies fever, chills, or sweats. EYES: Denies visual changes, redness, or discharge. ENT: Denies rhinorrhea, congestion, sore throat, or otalgia. CARDIOVASCULAR: Denies chest pain, palpitations, or edema. RESPIRATORY: Denies cough or dyspnea. GASTROINTESTINAL: Reports nausea GENITOURINARY: Denies dysuria or hematuria. SKIN: Denies rash or itching. MUSCULOSKELETAL: Denies back pain, joint pain, or myalgia. NEUROLOGIC: Reports dizziness PSYCHIATRIC: Denies anxiety or depression. [facility] Past Medical History Medical History ADHD Anemia Anxiety CTS (carpal tunnel syndrome) History of asthma Migraines Sciatica Surgical History Surgical History History of discectomy History of mastoidectomy History of tubal ligation Previous back surgery Family History Family History Mother Diabetes mellitus Daughter Diabetes mellitus Other Diabetes mellitus maternal aunt Social History Social History Smoking status: Never smoker Second hand tobacco smoke exposure: Yes Alcohol intake: current Alcohol use details: iday Substance use: former Substance use type: marijuana Additional living arrangements comments: Additional occupation/education comments: disabled Gender identity (if verbalized by the patient): Female Sexual Orientation (if Verbalized by the Patient): Straight or Heterosexual Exam Narrative: GENERAL: Well-appearing, well-nourished, no physical limitations, and in no acute distress. HEAD: Normocephalic, atraumatic. EYES: Conjunctivae normal, PERRLA and EOMI. NECK: Supple. No meningeal signs. No carotid bruits or JVD CHEST: Clear to auscultation. No respiratory distress. No wheezes ral
[2022-01-08 13:50] LABS: Basophils Percent Auto 0.3 % (0.2-1.2); Eosinophils Absolute Auto 0.1 K/mm3 (0-0.3); Eosinophils Percent Auto 1.1 % (0-4.4); Hematocrit 32.5 % (37.0-47.0); Hemoglobin 10.5 g/dL (12.0-15.0); Immature Granulocyte Absolute 0.05 K/mm3 (0.00-0.031); Immature Granulocyte Percent A 0.8 % (0-0.5); Lymphocytes Absolute Auto 1.67 K/mm3 (0.9-3.2); Lymphocytes Percent Auto 27.4 % (18.3-44.2); Mean Corpuscular HGB Conc 32.3 g/dl (32-36); Mean Corpuscular Hemoglobin 29.4 pg (26-34); Mean Platelet Volume 9.9 fl (7.4-10.4); Monocytes Absolute Auto 0.5 K/mm3 (0.1-0.6); Monocytes Percent Auto 7.7 % (2.6-8.5); Neutrophils Absolute Auto 3.8 K/mm3 (1.3-6.7); Neutrophils Percent Auto 62.7 % (45.5-73.1); Platelet Count Result 275 k/mm3 (150-375); Red Blood Count 3.57 M/mm3 (4.2-5.4); Red Cell Distribution Width 13.8 % (11.5-14.5); White Blood Count 6.1 K/mm3 (4.5-10.0)
[2022-01-08 13:57] LABS: Alanine Aminotransferase 32 U/L (6-35); Albumin Level 3.9 g/dL (3.5-5.1); Alkaline Phosphatase 85 U/L (38-126); Anion Gap 9 mmol/L (8-16); Aspartate Amino Transferase 30 U/L (14-36); Bilirubin,Total 0.3 mg/dL (0.2-1.3); Blood Urea Nitrogen 12 mg/dL (7-17); Calcium 8.7 mg/dL (8.4-10.2); Carbon Dioxide 21 mmol/L (22-30); Chloride 107 mmol/L (98-107); Estimated CRCL calculation 122 ml/min; Estimated Glomerular Filt Rate > 60; Glucose 105 mg/dL (65-110); Lipase 33 U/L (23-300); Potassium 4.2 mmol/L (3.4-5.0); Sodium 137 mmol/L (137-145)
[2022-01-08] MEDS: ASPIRIN 81 MG CHEWABLE TABLET 324 MG PO (14:02)
[2022-01-08 14:05] LABS: INR 1.1; Prothrombin Time 13.5 Seconds (11.1-14.7)
[2022-01-08 14:09] LABS: Troponin I < 0.012 ng/mL (0.000-0.034)
[2022-01-08] MEDS: ONDANSETRON INJ 4 MG/2 ML VIAL IV PUSH (14:18)
[2022-01-08 14:29] LABS: Appearance Urine Slightly Cloudy (Clear); Bilirubin Urine Negative (Negative); Blood Urine 2+ (Negative); Color Urine Yellow (Yellow); Glucose Urine UA Negative (Negative); Ketones Urine Negative (Negative); Leukocyte Esterase Ur Negative LEU/UL (Negative); Nitrate Urine Negative (Negative); Protein Urine Trace mg/dL (Negative); Specific Grav Ur >= 1.030 (1.001-1.035); Urobilinogen Urine 0.2 mg/dL (<2.0)
[2022-01-08 14:36] LABS: Mucus Urine Rare /lpf; RBC Urine 0-2 /hpf (0-2); Squamous Epithelial Cell Urine Moderate /hpf (Few); WBC Urine 0-3 /hpf
[2022-01-08 14:37] LABS: Add Urine Microscopic? YES
== END 2022-01-08 15:49 | disposition home or self-care (01) ==
PROVIDERS: Emergency Medicine; Emergency Provider Nurse Practitioner Family; PCP Physician Assistant
DX: R42 Dizziness and giddiness (principal); R11.0 Nausea; T46.5X5A Adverse effect of other antihypertensive drugs, initial encounter; I10 Essential (primary) hypertension; J45.909 Unspecified asthma, uncomplicated; D64.9 Anemia, unspecified
CPT/HCPCS: 36415; 70450; 71046; 80053; 81001; 83690; 84484; 85025; 85610; 85730; 93005; 96374; 99284; A9270; J2405

== ENCOUNTER 2022-02-14 15:17 | Emergency (ER) | payer OTHER, SELFPAY ==
[2022-02-14] VITALS (7 sets, daily range): BP systolic 108–149; BP diastolic 83–97; PULSE 64–72; RESP 16–18; TEMP 36.4; O2SAT 97–100
--- NOTE | ~2022-02-14 | XR_ITS ---
XR forearm RT 2V DATE: 02/14/2022 18:03 INDICATION: Pain and swelling at scar is 4 carpal tunnel surgery from July TECHNIQUE: AP and lateral views of right forearm COMPARISON: None FINDINGS: No fracture or dislocation, periosteal reaction or bone destruction. No radiopaque soft tis franci foreign body or subcutaneous emphysema. IMPRESSION: Negative Reviewed, dictated and finalized at location A. IMPRESSION: Negative
--- NOTE | ~2022-02-14 | US_ITS ---
EXAMINATION: US venous doppler UE RT DATE: 02/14/2022 16:59 INDICATION: Right upper limb swelling and erythema TECHNIQUE: Grayscale images without and with compression and Doppler images of the right upper extrem ity veins were obtained. COMPARISON: None. FINDINGS: The right internal jugular vein, subclavian vein, axillary vein, brachial vein, basilic vein, cephali c vein, radial vein, and ulnar vein are patent. IMPRESSION: 1. Patent right upper extremity veins. No evidence of venous thrombosis. Reviewed, dictated and finalized at location B.
--- NOTE | 2022-02-14 16:19 | ED.GENADULT ---
HPI - General Adult General Chief complaint: Extremity Injury, Upper <Sarah Corbin PA-C - Last Filed: 02/18/22 16:57> Stated complaint: Swelling After Surgery on Arm <Sarah Corbin PA-C - Last Filed: 02/18/22 16:57> Time Seen by Provider: 02/14/22 16:04 <Sarah Corbin PA-C - Last Filed: 02/18/22 16:57> History of Present Illness HPI narrative: 36-year-old female here for evaluation of right upper extremity pain swelling and redness for the past week. Patient states the pain started in her hand where she had carpal tunnel release surgery in July of this year. The pain was mild in her hand at first, but then spread proximally, and is now also present in her elbow. She also appreciates a soft tissue swelling around the right forearm and some paresthesias in the fingers 2 through 5 and in the palm; sparing the thumb. Has not contacted her surgeon regarding the swelling/pain; patient does not know the name of the surgeon who performed the carpal tunnel release. No fevers, chills, nausea, vomiting, leg swelling, weakness in the arm. No history of IV drug use. <Sarah Corbin PA-C - Last Filed: 02/18/22 16:57> Related Data Home medications: Home Medications Medication Instructions Recorded Confirmed albuterol sulfate 2.5 mg/3 mL 2.5 mg inhalation Q4-5H PRN Dyspnea 10/08/19 02/28/22 (0.083 %) solution for nebulization beclomethasone dipropionate 80 2 inh inhalation DAILY 10/08/19 02/28/22 mcg/actuation HFA breath activated aerosol (Qvar RediHaler) baclofen 10 mg tablet 10 mg PO BID 10/17/21 02/28/22 fluticasone propionate 50 1 spray intranasal DAILY PRN 01/08/22 02/28/22 mcg/actuation nasal Congestion spray,suspension topiramate 50 mg tablet 50 mg PO HS 01/08/22 02/28/22 albuterol sulfate 90 mcg/actuation 2 inh inhalation Q4-5H PRN Dyspnea 02/22/22 02/28/22 aerosol inhaler cholecalciferol (vitamin D3) 1,250 1,250 mcg PO WEEKLY 02/22/22 02/28/22 mcg (50,000 unit) capsule hydrocodone 5 mg-acetaminophen 325 1 tablet PO Q6-8H PRN Pain 02/22/22 02/28/22 mg tablet loratadine 10 mg tablet (Claritin) 10 mg PO DAILY 02/22/22 02/28/22 losartan 50 mg tablet 50 mg PO QAM 02/22/22 02/28/22 vit#24-iron amino acid 1 tablet PO DAILY 02/22/22 02/28/22 chelat-folic acid 30 mg-975 mcg tablet rizatriptan 10 mg disintegrating 10 mg PO BID PRN Headache 02/22/22 02/28/22 tablet <Sarah Corbin PA-C - Last Filed: 02/18/22 16:57> Allergies/adverse reactions: Allergies Allergy/AdvReac Type Severity Reaction Status Date / Time Penicillins Allergy Mild Rash Verified 02/28/22 07:55 <Sarah Corbin PA-C - Last Filed: 02/18/22 16:57> Review of Systems Review of Systems: Gen.: Denies fevers or chills Eyes: Denies eye pain or visual change ENT: Denies congestion Respiratory: Denies shortness of breath or cough CV: Denies chest pain or palpitations GI: Denies abdominal pain nausea, emesis or diarrhea denies burning, urgency, frequency or hematuria Musculoskeletal: Reports right upper extremity swelling and pain. Neuro: Denies numbness, tingling, weakness or focal weakness Skin: Denies rash Except as documented, all other systems reviewed and negative <DEVYN Carbajal Last Filed: 02/18/22 16:57> [facility] Past Medical History Medical History: Medical History ADHD Anemia Anxiety CTS (carpal tunnel syndrome) History of asthma Hypertension Migraines PONV (postoperative nausea and vomiting) Sciatica <DEVYN Carbajal Last Filed: 02/18/22 16:57> Surgical History Surgical History: Surgical History History of discectomy History of mastoidectomy History of tubal ligation Previous back surgery <Sarah Corbin PA-C - Last Filed: 02/18/22 16:57> Family History Family
[2022-02-14 17:20] LABS: Basophils Percent Auto 0.3 % (0.2-1.2); Eosinophils Absolute Auto 0.1 K/mm3 (0-0.3); Eosinophils Percent Auto 1.4 % (0-4.4); Hematocrit 33.3 % (37.0-47.0); Hemoglobin 10.7 g/dL (12.0-15.0); Immature Granulocyte Absolute 0.04 K/mm3 (0.00-0.031); Immature Granulocyte Percent A 0.6 % (0-0.5); Lymphocytes Percent Auto 33.8 % (18.3-44.2); Mean Corpuscular HGB Conc 32.1 g/dl (32-36); Mean Corpuscular Hemoglobin 28.9 pg (26-34); Mean Platelet Volume 9.8 fl (7.4-10.4); Monocytes Absolute Auto 0.5 K/mm3 (0.1-0.6); Monocytes Percent Auto 7.5 % (2.6-8.5); Neutrophils Percent Auto 56.4 % (45.5-73.1); Platelet Count Result 289 k/mm3 (150-375); Red Cell Distribution Width 13.2 % (11.5-14.5); White Blood Count 7.1 K/mm3 (4.5-10.0)
[2022-02-14 17:34] LABS: Alanine Aminotransferase 30 U/L (6-35); Albumin Level 4.2 g/dL (3.5-5.1); Alkaline Phosphatase 79 U/L (38-126); Anion Gap 9 mmol/L (8-16); Aspartate Amino Transferase 24 U/L (14-36); Bilirubin,Total 0.3 mg/dL (0.2-1.3); Blood Urea Nitrogen 11 mg/dL (7-17); CRP 1.1 mg/dL (<1.0); Calcium 8.9 mg/dL (8.4-10.2); Carbon Dioxide 24 mmol/L (22-30); Chloride 106 mmol/L (98-107); Estimated CRCL calculation 121 ml/min; Estimated Glomerular Filt Rate > 60; Glucose 91 mg/dL (65-110); Sodium 139 mmol/L (137-145)
[2022-02-14 18:13] LABS: Erythrocyte Sedimentation Rate 47 mm/hr (0-20)
[2022-02-14] MEDS: IBUPROFEN 600 MG TABLET PO (18:13)
== END 2022-02-14 19:07 | disposition home or self-care (01) ==
PROVIDERS: Physician Assistant; Emergency Provider Emergency Medicine
DX: M79.631 Pain in right forearm (principal); D64.9 Anemia, unspecified; J45.909 Unspecified asthma, uncomplicated; Z77.22 Contact with and (suspected) exposure to environmental tobacco smoke (acute) (chronic)
CPT/HCPCS: 36415; 73090; 80053; 85025; 85652; 86140; 93971; 99284; A9270

== ENCOUNTER 2022-02-28 01:28 | Day surgery (SDC) | payer OTHER, SELFPAY ==
[2022-02-22 15:33] VITALS: BMI 54.3
--- NOTE | 2022-02-22 15:46 | PC.NURSE ---
Report to the Outpatient Waiting Room, entrance under the green pavilion located off [facility], at time __8:30AM on date __02/28/22 . Planned Procedure Time: ___10:30AM . Time changes happen often and if your time is changed the preop area will call you the afternoon before. - You and your visitor will be asked to self-screen and do not enter if you have any COVID symptoms. - We encourage only one visitor and NO visitors under age 16 are allowed at this time. Your visitor will receive communication by the phone number that is given day of service. - The patient visitor is requested to social distance or may leave the building when not with patient due to restrictions. - A mask is required within the hospital. Patients may have clear liquids (water, carbonated beverages, clear teas, apple juice) until 3 hours prior to surgery with a maximum of 20 ounces. - No food from midnight until time of surgery Take the following medications with a SIP of water the morning of surgery: __QVAR INHALER, ALBUTEROL INHALER OR NEBULIZER NEEDED, HYDROCODONE NEEDED Medications to discontinue per physician HOLD ALL VITAMINS/SUPPLEMENTS 3 DAYS PRE-OP Date to take last dose____02/24/22 Please no make-up, nail greek, hairspray, perfume, deodorant, or body powder the day of surgery. No jewelry (including any body piercings) or valuables the day of surgery, leave them at home. Please take a shower or bath the night before, or the morning of, surgery with an antibacterial soap. Wear comfortable, loose fitting clothing. Children are encouraged to wear pajamas. - Jewelry must be removed prior to entering the operating room. Rings and piercings that are not removed may be cut off. - The hospital will not accept responsibility for valuables. - Please leave all valuables, including medications, at home the day of surgery. If you are going home after surgery, a licensed armored truck driver must drive you home. - NO public transportation without another adult. - We recommend that an adult stay with you for 24 hours following discharge. - We also recommend that you do not drive, make important decision, drink alcoholic beverages, or take any drugs that were not prescribed by your health care provider for at least 24 hours after your discharge time. Follow any additional instructions given to you from your surgeon. If you or anyone in your household have experienced Covid symptoms in the past week, please notify your surgeon or the nurse liaison at the phone number below for possible testing. Telephone instructions given to ___PATIENT and asked if any additional questions and then verbalized understanding. Patient advised to call surgeon office or pre surgery nurse liaison [phone] if any additional questions.
--- NOTE | 2022-02-27 13:00 | WPDANESEPPF ---
Anes - Initial Pre Proc Eval Procedure: Operation Date: 02/28/22 09:30 Proposed Procedures p Hysteroscopy Dilation and Curettage - Alpesh Bethea MD Date/Time: 02/27/22 13:00 Surgeon: Alpesh Bethea MD Pre Op Diagnosis: abnormal uterine bleeding Patient Data Age: 36 Gender: F Height: 1.65 m Weight: 148 kg Allergies Allergy/AdvReac Type Severity Reaction Status Date / Time Penicillins Allergy Mild Rash Verified 02/28/22 07:55 Home Medications Medication Instructions Recorded Confirmed Type albuterol sulfate 2.5 mg/3 mL 2.5 mg inhalation Q4-5H PRN Dyspnea 10/08/19 02/28/22 History (0.083 %) solution for nebulization beclomethasone dipropionate 80 2 inh inhalation DAILY 10/08/19 02/28/22 History mcg/actuation HFA breath activated aerosol (Qvar RediHaler) baclofen 10 mg tablet 10 mg PO BID 10/17/21 02/28/22 History fluticasone propionate 50 1 spray intranasal DAILY PRN 01/08/22 02/28/22 History mcg/actuation nasal Congestion spray,suspension topiramate 50 mg tablet 50 mg PO HS 01/08/22 02/28/22 History albuterol sulfate 90 mcg/actuation 2 inh inhalation Q4-5H PRN Dyspnea 02/22/22 02/28/22 History aerosol inhaler cholecalciferol (vitamin D3) 1,250 1,250 mcg PO WEEKLY 02/22/22 02/28/22 History mcg (50,000 unit) capsule hydrocodone 5 mg-acetaminophen 325 1 tablet PO Q6-8H PRN Pain 02/22/22 02/28/22 History mg tablet loratadine 10 mg tablet (Claritin) 10 mg PO DAILY 02/22/22 02/28/22 History losartan 50 mg tablet 50 mg PO QAM 02/22/22 02/28/22 History vit#24-iron amino acid 1 tablet PO DAILY 02/22/22 02/28/22 History chelat-folic acid 30 mg-975 mcg tablet rizatriptan 10 mg disintegrating 10 mg PO BID PRN Headache 02/22/22 02/28/22 History tablet Patient hx anesthesia problems: none Family hx anesthesia problems: none Results Review: All pre-operative results and documents have been reviewed as part of the pre-operative evaluation. FOR[facility]LY [facility], LAT[facility] Past Medical History Medical History ADHD Anemia Anxiety CTS (carpal tunnel syndrome) History of asthma Hypertension Migraines PONV (postoperative nausea and vomiting) Sciatica Surgical History Surgical History History of discectomy History of mastoidectomy History of tubal ligation Previous back surgery Family History Family History Mother Diabetes mellitus Daughter Diabetes mellitus Other Diabetes mellitus maternal aunt Social History Social History Smoking status: Never smoker Second hand tobacco smoke exposure: Yes Alcohol intake: current Alcohol use details: iday Substance use: never Substance use type: marijuana Living arrangements: with family Additional living arrangements comments: SPOUSE Additional occupation/education comments: disabled Gender identity (if verbalized by the patient): Female Sexual Orientation (if Verbalized by the Patient): Straight or Heterosexual Spiritual care concerns: No Anes - Eval Final PreProcedure Day of Procedure 02/27/22 13:00 Patient weight: morbidly obese Heart: regular rate and rhythm Lungs: clear to auscultation Airway: Mallampati scale class II Neurological: alert and oriented Last oral intake: >/= 8 hours ASA classification: III Emergent: no Anesthetic plan: proceed Anesthesia type and monitoring: general GIVS and LMA and standard monitoring Results Review: All pre-operative results and documents have been reviewed as part of the pre-operative evaluation. Informed Consent: The patient's anesthetic plan and its attendant risks and benefits were discussed with the patient/family/POA. Questions were solicited and answers provided to the satisfaction of the patient/family/POA.
--- NOTE | 2022-02-27 16:13 | PM.IMHP ---
H&P: HPI History of Present Illness Date/Time: 02/27/22 16:13 36-year-old 1 para 1001 female presents for evaluation for heavy irregular vaginal bleeding. Said her cycles have been normal until approximately 2 years ago at which time she began to have amenorrhea for 2-3 months at a time and then when she had a menstrual cycle lasts 7-10 days with 3-5 days very heavy with clotting and cramping. She has had no significant evaluation for this, other than a recent ultrasound which did show enlarged fibroid uterus with endometrium at 8mm. She also has had a tubal ligation in the past and is interested in future childbearing. Chief Complaint: Menometrorrhagia Review of Systems Review of Systems: All systems reviewed & are unremarkable except as noted in HPI and below PMFSH Past Medical History Medical History ADHD Anemia Anxiety CTS (carpal tunnel syndrome) History of asthma Hypertension Migraines PONV (postoperative nausea and vomiting) Sciatica Surgical History Surgical History History of discectomy History of mastoidectomy History of tubal ligation Previous back surgery Family History Family History Mother Diabetes mellitus Daughter Diabetes mellitus Other Diabetes mellitus maternal aunt Social History Social History Smoking status: Never smoker Second hand tobacco smoke exposure: Yes Alcohol intake: current Alcohol use details: holiday Substance use: never Substance use type: marijuana Additional living arrangements comments: SPOUSE Additional occupation/education comments: disabled Gender identity (if verbalized by the patient): Female Sexual Orientation (if Verbalized by the Patient): Straight or Heterosexual Spiritual care concerns: No Meds Home Medications and Allergies Home Medications Medication Instructions Recorded Confirmed Type albuterol sulfate 2.5 mg/3 mL 2.5 mg inhalation Q4-5H PRN Dyspnea 10/08/19 02/22/22 History (0.083 %) solution for nebulization beclomethasone dipropionate 80 2 inh inhalation DAILY 10/08/19 02/22/22 History mcg/actuation HFA breath activated aerosol (Qvar RediHaler) baclofen 10 mg tablet 10 mg PO BID 10/17/21 02/22/22 History fluticasone propionate 50 1 spray intranasal DAILY PRN 01/08/22 02/22/22 History mcg/actuation nasal Congestion spray,suspension topiramate 50 mg tablet 50 mg PO HS 01/08/22 02/22/22 History albuterol sulfate 90 mcg/actuation 2 inh inhalation Q4-5H PRN Dyspnea 02/22/22 02/22/22 History aerosol inhaler cholecalciferol (vitamin D3) 1,250 1,250 mcg PO WEEKLY 02/22/22 02/22/22 History mcg (50,000 unit) capsule hydrocodone 5 mg-acetaminophen 325 1 tablet PO Q6-8H PRN Pain 02/22/22 02/22/22 History mg tablet loratadine 10 mg tablet (Claritin) 10 mg PO DAILY 02/22/22 02/22/22 History losartan 50 mg tablet 50 mg PO QAM 02/22/22 02/22/22 History vit#24-iron amino acid 1 tablet PO DAILY 02/22/22 02/22/22 History chelat-folic acid 30 mg-975 mcg tablet rizatriptan 10 mg disintegrating 10 mg PO BID PRN Headache 02/22/22 02/22/22 History tablet Allergies Allergy/AdvReac Type Severity Reaction Status Date / Time Penicillins Allergy Mild Rash Verified 02/22/22 15:21 Exam Const: General: cooperative, healthy appearing and comfortable Resp: Effort & Inspection: normal respiratory effort Auscultation: clear to auscultation bilaterally Cardio: Rate: regular rate Rhythm: regular rhythm GI: Inspection: normal to inspection Auscultation: normal bowel sounds : External Female Exam: normal external appearance Speculum Exam - Vagina: normal appearance of the vagina Speculum Exam - Cervix: normal appearance of the cervix Bimanual exam- vagin
[2022-02-28] VITALS (7 sets, daily range): BP systolic 120–170; BP diastolic 71–91; PULSE 54–78; RESP 18–24; TEMP 36.1; O2SAT 99–100
--- NOTE | 2022-02-28 07:08 | WPDHPUPDATE1 ---
History and Physical Update Update Date/Time: 02/28/22 07:08 History and Physical has been reviewed, including an updated exam of the patient. There are NO changes in the patient's condition. Risks, benefits, and alternatives have been discussed and questions answered. Patient agrees to proceed with procedure.
[2022-02-28] MEDS: ACETAMINOPHEN 500 MG TABLET 1000 MG PO (08:12)
[2022-02-28] MEDS: LACTATED RINGERS 1,000 ML 30 ML IV CONT (08:12)
--- NOTE | 2022-02-28 09:48 | W.PM.PROC2 ---
Procedure Note - Detailed Date of Procedure 02/28/22 Pre-op Diagnosis 1. abnormal uterine bleeding Post-op Diagnosis Same (2. Polyp) Procedure Performed 1. Hysteroscopy with uterine curettings 2. Hysteroscopic polypectomy x2 Surgeon Alpesh Bethea MD Anesthesia MAC Findings 1. Slightly thickened endometrial cavity 2. Endometrial polyp x2 Description of Procedure Patient present magnesium and if this procedure. Cervix is dilated to allow the hysteroscope the placed with immediate visualization of 2 endometrial polyps. These were attempted to be removed with curetting and unable to do so. Therefore MyoSure instrument was used to remove the polyps. At this point the procedure was considered terminated there was no significant bleeding the patient was sent to recovery room in stable condition. Estimated Blood Loss 25 Drains No Packing No Pathology Yes Complications No immediate complications Condition Stable Disposition PACU [facility] Billing Surgery - Charge Forward: Surgery Billing
[2022-02-28] MEDS: ONDANSETRON INJ 4 MG/2 ML VIAL IV PUSH (10:00)
[2022-02-28] MEDS: oxyCODONE HCL (*CRX) 5 MG TAB IR PO (10:31)
--- NOTE | 2022-02-28 10:57 | SUR.PHASEII ---
pt is tachypnic with autible wheezes. this nurse called dr michel and instructed to order a breathing treatment
[2022-02-28] MEDS: ALBUTEROL SULFATE NEB 2.5 MG/3 ML INH INHALATION (11:05)
== END 2022-02-28 11:40 | disposition home or self-care (01) ==
PROVIDERS: Visit Provider Obstetrics & Gynecology
PROC: 0U5B8ZZ Destruction of Endometrium, Via Natural or Artificial Opening Endoscopic (ICD-10-PCS; CPT 58563; principal; 2022-02-28 09:30)
DX: N92.1 Excessive and frequent menstruation with irregular cycle (principal); N84.0 Polyp of corpus uteri; I10 Essential (primary) hypertension; J45.909 Unspecified asthma, uncomplicated; Z79.51 Long term (current) use of inhaled steroids; F12.90 Cannabis use, unspecified, uncomplicated; E66.01 Morbid (severe) obesity due to excess calories; Z68.43 Body mass index [BMI] 50.0-59.9, adult
CPT/HCPCS: 58558; 88305; 94640; A9270; J2250; J2405; J2704; J3010; J7030; J7120

== ENCOUNTER 2023-02-05 20:43 | Emergency (ER) | payer OTHER, SELFPAY ==
--- NOTE | ~2023-02-05 | CT_ITS ---
EXAMINATION: CT cervical spine wo con DATE: 02/05/2023 22:22 INDICATION: Neck pain TECHNIQUE: Computed tomography (CT) of the cervical spine was performed without intravenous contrast. Automated exposure control and iterative reconstruction technique were employed. The dose-length pro duct was 633.31 mGy-cm. COMPARISON: 11/01/2020. FINDINGS: Vertebral Body Alignment: Intact. Cervical straightening which can occur with muscle spasm or positio rin. Craniocervical and atlantoaxial alignment: Mild degenerative change. Alignment intact. Osseous structures/fracture: No evidence of a lytic or blastic process in the visualized spine. No e vidence of acute fracture. Unfused posterior C1 arch. Cervical soft tissues: The paraspinal soft tissues planes are maintained. Degenerative changes: No significant degenerative changes. No severe central canal or neural foramina l narrowing. IMPRESSION: No acute fracture or traumatic malalignment in the cervical spine. Reviewed, dictated and finalized at location K.
--- NOTE | ~2023-02-05 | XR_ITS ---
EXAMINATION: XR chest 1V Exam Date/Time: 02/05/2023 22:20 CDT HISTORY: neck pain Comparison: 01/08/2022. RESULT: Lines, tubes, and devices: None. Lungs and pleura: Lordotic positioning. Low volumes with crowding. Otherwise clear. Cardiomediastinal silhouette: Stable. Other: No acute osseous or upper abdominal finding. IMPRESSION: No acute cardiopulmonary process. Reviewed, dictated and finalized at location K.
[2023-02-05 20:49] VITALS: BP 147/87; PULSE 74; RESP 18; TEMP 36.4; O2SAT 100
--- NOTE | 2023-02-05 21:12 | ECG_ITS ---
Measurements Intervals [place] Rate: 63 P: 43 W[place]: 196 QRS: 30 QRSD: 86 T: 17 QT: 389 QTc: 399 Interpretive Statements SINUS RHYTHM WITH SINUS ARRHYTHMIA POSSIBLE LEFT ATRIAL ENLARGEMENT [-0.1mV P WAVE IN V1/V2] COMPARED TO ECG 01/08/2022 13:30:36 SINUS ARRHYTHMIA NOW PRESENT Electronically Signed On 02-06-2023 12:55:43 CDT by Zayra Hood M.D.
[2023-02-05 21:14] VITALS: BP 146/89; PULSE 63; RESP 20; O2SAT 98
[2023-02-05 21:40] LABS: Basophils Percent Auto 0.3 % (0.2-1.2); Eosinophils Absolute Auto 0.2 K/mm3 (0-0.3); Eosinophils Percent Auto 2.4 % (0-4.4); Hematocrit 35.3 % (37.0-47.0); Immature Granulocyte Absolute 0.04 K/mm3 (0.00-0.031); Immature Granulocyte Percent A 0.5 % (0-0.5); Lymphocytes Absolute Auto 2.05 K/mm3 (0.9-3.2); Lymphocytes Percent Auto 26.1 % (18.3-44.2); Mean Corpuscular HGB Conc 31.2 g/dl (32-36); Mean Corpuscular Hemoglobin 29.2 pg (26-34); Mean Corpuscular Volume 93.6 fl (80-100); Mean Platelet Volume 9.7 fl (7.4-10.4); Monocytes Absolute Auto 0.6 K/mm3 (0.1-0.6); Monocytes Percent Auto 7.9 % (2.6-8.5); Neutrophils Absolute Auto 4.9 K/mm3 (1.3-6.7); Neutrophils Percent Auto 62.8 % (45.5-73.1); Platelet Count Result 328 k/mm3 (150-375); Red Blood Count 3.77 M/mm3 (4.2-5.4); Red Cell Distribution Width 13.7 % (11.5-14.5); White Blood Count 7.8 K/mm3 (4.5-10.0)
[2023-02-05 21:51] LABS: Prothrombin Time 13.6 Seconds (11.1-14.7)
[2023-02-05 21:52] LABS: Partial Thromboplastin Time 25.7 SECONDS (22.3-36.8)
[2023-02-05 21:58] LABS: Alanine Aminotransferase 26 U/L (6-35); Alkaline Phosphatase 45 U/L (38-126); Anion Gap 4 mmol/L (8-16); Aspartate Amino Transferase 26 U/L (14-36); Bilirubin,Total 0.5 mg/dL (0.2-1.3); Blood Urea Nitrogen 13 mg/dL (7-17); Calcium 8.8 mg/dL (8.4-10.2); Carbon Dioxide 27 mmol/L (22-30); Chloride 105 mmol/L (98-107); Estimated CRCL calculation 156 ml/min; Estimated Glomerular Filt Rate > 60; Glucose 123 mg/dL (65-110); Potassium 4.5 mmol/L (3.4-5.0); Sodium 136 mmol/L (137-145)
[2023-02-05 22:09] LABS: Appearance Urine Turbid (Clear); Bacteria Urine 4+ /hpf; Bilirubin Urine Negative (Negative); Blood Urine Negative (Negative); Color Urine Yellow (Yellow); Glucose Urine UA Negative (Negative); Ketones Urine Negative (Negative); Leukocyte Esterase Ur 2+ LEU/UL (Negative); Need Manual Microscopic Reviewed; Nitrate Urine Negative (Negative); Protein Urine 1+ mg/dL (Negative); Specific Grav Ur 1.027 (1.001-1.035); Squamous Epithelial Cell Urine Many /hpf (Few); WBC Urine 21-50 /hpf
[2023-02-05 22:10] LABS: Add Urine Microscopic? YES
--- NOTE | 2023-02-05 22:13 | ED.GENADULT ---
HPI - General Adult General Chief complaint: Weakness Stated complaint: generalized R sided pain/numbness x2 days Time Seen by Provider: 02/05/23 21:28 Source: patient Limitations: no limitations History of Present Illness HPI narrative: Patient is a 37-year-old female present to the emergency department complaining of right-sided pain for the past approximately 2 days. Patient states she has been having intermittent cramps in her right leg for the past 2 days and then began noticing some right-sided neck pain and paresthesias throughout her right upper extremity over the past 24 hours. Patient denies any preceding injury. Patient admits to a history of sciatica for which she sees orthopedics as an outpatient and also takes [place] daily for pain control and feels like her sciatica is flaring up on the right side. Patient denies any history of cervical radiculopathy and denies any history of MRIs of her neck. Patient denies any numbness. Patient admits to feeling weaker in her right upper and right lower extremity secondary to the pain. Patient denies history of cancer or weight loss or use of blood thinners or fever. Patient denies cough, chest pain, shortness of breath, abdominal pain, nausea, vomiting, diarrhea, melena, rash, vision changes, difficulty swallowing, dysphonia, confusion, dizziness. Related Data Home Medications Medication Instructions Recorded Confirmed albuterol sulfate 2.5 mg/3 mL 2.5 mg inhalation Q4-5H PRN Dyspnea 10/08/19 01/27/23 (0.083 %) solution for nebulization beclomethasone dipropionate 80 2 inh inhalation DAILY 10/08/19 01/27/23 mcg/actuation HFA breath activated aerosol (Qvar RediHaler) baclofen 10 mg tablet 10 mg PO BID 10/17/21 01/27/23 fluticasone propionate 50 1 spray intranasal DAILY PRN 01/08/22 01/27/23 mcg/actuation nasal Congestion spray,suspension topiramate 50 mg tablet 50 mg PO HS 01/08/22 01/27/23 albuterol sulfate 90 mcg/actuation 2 inh inhalation Q4-5H PRN Dyspnea 02/22/22 01/27/23 aerosol inhaler cholecalciferol (vitamin D3) 1,250 1,250 mcg PO WEEKLY 02/22/22 01/27/23 mcg (50,000 unit) capsule hydrocodone 5 mg-acetaminophen 325 1 tablet PO Q6-8H PRN Pain 02/22/22 01/27/23 mg tablet loratadine 10 mg tablet (Claritin) 10 mg PO DAILY 02/22/22 01/27/23 losartan 50 mg tablet 50 mg PO QAM 02/22/22 01/27/23 vit#24-iron amino acid 1 tablet PO DAILY 02/22/22 01/27/23 chelat-folic acid 30 mg-975 mcg tablet atogepant 60 mg tablet (Qulipta) 60 mg PO DAILY 01/27/23 01/27/23 Allergies Allergy/AdvReac Type Severity Reaction Status Date / Time Penicillins Allergy Mild Rash Verified 01/27/23 15:22 Review of Systems Review of Systems: A 10 system review of systems was completed on the patient and is negative except for what is stated in the HPI. Nursing and ancillary documentation was reviewed. FORMERLY [facility] Past Medical History Medical History (Updated 02/07/23 @ 00:00 by Gene Freeman) ADHD Anemia Anxiety Arthritis CTS (carpal tunnel syndrome) History of asthma Hypertension Migraines PONV (postoperative nausea and vomiting) Sciatica Surgical History Surgical History (Updated 01/27/23 @ 15:29 by ROCK Sebastian) History of discectomy History of hysteroscopy (02/28/22) Hscope D&C / Polypectomy x 2 History of mastoidectomy History of tubal ligation Previous back surgery S/P arthroscopic surgery of right knee Family History Family History Mother Diabetes mellitus Daughter Diabetes mellitus Other Diabetes mellitus maternal aunt Social History Social History Smoking status: Never smoker Second hand tobacco smoke exposure: Yes Alcohol intake: current Alcohol use details: holiday Substance use: never Substance use type: marijuana Living arrangements: with family Additional living arrangements commen
[2023-02-05] MEDS: diazePAM INJ (*CRX) 10 MG/2 ML SYRINGE 5 MG IV PUSH (22:28)
[2023-02-05] MEDS: KETOROLAC 15 MG/ML VIAL (*BKC) IV PUSH (22:28)
[2023-02-05 22:30] LABS: Creatine Kinase 50 U/L (30-135)
[2023-02-05 22:36] VITALS: BP 139/80; PULSE 74; RESP 20; O2SAT 98
[2023-02-05 22:42] LABS: Troponin I < 0.012 ng/mL (0.000-0.034)
--- NOTE | 2023-02-05 23:02 | PC.NURSE ---
Assumed care of pt from YENI Jane at this time.
[2023-02-06] MEDS: NITROFURANTOIN MONOHYD MACROCR 100 MG CAP PO (00:28)
[2023-02-06 00:29] VITALS: BP 134/78; PULSE 67; RESP 19; O2SAT 100
== END 2023-02-06 00:35 | disposition home or self-care (01) ==
PROVIDERS: Emergency Medicine; Emergency Provider Student in an Organized Health Care Education/Training Program; PCP Physician Assistant
DX: M54.31 Sciatica, right side (principal); M54.12 Radiculopathy, cervical region; J45.909 Unspecified asthma, uncomplicated; I10 Essential (primary) hypertension; D64.9 Anemia, unspecified; M19.90 Unspecified osteoarthritis, unspecified site; Z77.22 Contact with and (suspected) exposure to environmental tobacco smoke (acute) (chronic); R94.31 Abnormal electrocardiogram [ECG] [EKG]
CPT/HCPCS: 36415; 71045; 72125; 80053; 81001; 81025; 82550; 84484; 85025; 85610; 85730; 87086; 93005; 96374; 96375; 99284; A9270; J1885; J3360

== ENCOUNTER 2023-02-17 11:44 | Emergency (ER) | payer OTHER, SELFPAY | END 2023-02-17 12:04 | disposition left against medical advice (07) | PROVIDERS: PCP Physician Assistant | DX: Z53.21 Procedure and treatment not carried out due to patient leaving prior to being seen by health care provider (principal) | CPT/HCPCS: 99199 ==

== ENCOUNTER → 2023-05-06 15:33 | Outpatient (REF) | payer OTHER, SELFPAY | LOC: ANHLAB 15:33 | PROVIDERS: PCP Physician Assistant; Visit Provider Plastic Surgery | DX: L91.8 Other hypertrophic disorders of the skin (principal) | CPT/HCPCS: 88305 ==

== ENCOUNTER 2023-07-11 09:17 | Outpatient (CLI) | payer OTHER, SELFPAY | END 2023-07-11 09:18 | disposition home or self-care (01) | LOC: ANHSURGERY 09:22 | PROVIDERS: PCP Physician Assistant; Visit Provider Surgery | DX: K42.9 Umbilical hernia without obstruction or gangrene (principal) | CPT/HCPCS: 36415; 86850; 86900; 86901 ==

== ENCOUNTER 2023-08-11 03:40 | Day surgery (SDC) | payer OTHER, SELFPAY ==
[2023-07-08 10:26] VITALS: BMI 53.2
--- NOTE | 2023-07-08 10:54 | PC.NURSE ---
Addendum entered by Courtney Lorenzana RN 07/31/23 14:02: PT TO ARRIVE AT 0730 ON 08/11/23 FOR SURGERY AT 0930. LAST DOSE OF VITAMINS 08/07/23. Original Note: Report to the Outpatient Waiting Room, entrance under the green pavilion located off [facility], at 1000 on 07-17-23. Planned Procedure Time: 1200. Time changes happen often and if your time is changed the preop area will call you the afternoon before. - You and your visitor will be asked to self-screen and do not enter if you have any COVID symptoms. - A mask is optional within the hospital at this time. Patients may have clear liquids (water, carbonated beverages, clear teas, apple juice) until 3 hours prior to surgery with a maximum of 20 ounces. 0900 - No food from midnight until time of surgery - Infants may have breast milk until 4 hours before surgery, infant formula 6 hours prior to surgery. - Children will be allowed to drink immediately following surgery. If applicable, please bring a bottle or sippy cup to assist with drinking. Juice, water, soda, and popsicles are readily available. For infants on formula, please bring formula the day of surgery. Pacifiers are allowed. Take the following medications with a SIP of water the morning of surgery: metoprolol, [place] if needed Bring inhaler day of surgery to hospital DO NOT STOP ANY OF YOUR OTHER PRESCRIPTION MEDICATIONS PRIOR TO SURGERY ?EXCEPT THE FOLLOWING Medications to discontinue per physician: vitamins and supplements Date to take last dose: 07-14-23 Please no make-up, nail lux[place]bourg[place], hairspray, perfume, deodorant, or body powder the day of surgery. No jewelry (including any body piercings) or valuables the day of surgery, leave them at home. Please take a shower or bath the night before, or the morning of, surgery with an antibacterial soap. Wear comfortable, loose fitting clothing. Children are encouraged to wear pajamas. - Jewelry must be removed prior to entering the operating room. Rings and piercings that are not removed may be cut off. - The hospital will not accept responsibility for valuables. - Please leave all valuables, including medications, at home the day of surgery. If you are going home after surgery, a licensed transit mixer driver must drive you home. - NO public transportation without another adult if you receive anesthesia. - We recommend that an adult stay with you for 24 hours following discharge. - We also recommend that you do not drive, make important decision, drink alcoholic beverages, or take any drugs that were not prescribed by your health care provider for at least 24 hours after your discharge time. For Pediatric surgeries, we recommend two adults accompany the child home. Follow any additional instructions given to you from your surgeon. If you or anyone in your household have experienced Covid symptoms in the past week, please notify your surgeon or the nurse liaison at the phone number below for possible testing. Telephone instructions given to Graciela Meza and asked if any additional questions and then verbalized understanding. Patient advised to call surgeon office or pre surgery nurse liaison [phone] if any additional questions.
--- NOTE | 2023-07-16 14:31 | WPDANESEPPF ---
Anes - Initial Pre Proc Eval Procedure: Operation Date: 07/17/23 10:00 Proposed Procedures p Robotic Umbilical Hernia Repair with Mesh - Nona Talavera MD Date/Time: 07/16/23 14:31 Surgeon: Nona Talavera MD Pre Op Diagnosis: Umb Hernia 3cm Patient Data Age: 37 Gender: F Height: 1.65 m Weight: 145.15 kg Allergies Allergy/AdvReac Type Severity Reaction Status Date / Time prednisone Allergy Severe Itching Verified 07/08/23 10:09 Penicillins Allergy Mild Rash Verified 07/08/23 10:09 Home Medications Medication Instructions Recorded Confirmed Type albuterol sulfate 2.5 mg/3 mL 2.5 mg inhalation Q4-5H PRN Dyspnea 10/08/19 07/08/23 History (0.083 %) solution for nebulization baclofen 10 mg tablet 20 mg PO TID PRN Spasms 10/17/21 07/08/23 History fluticasone propionate 50 2 spray intranasal DAILY PRN 01/08/22 07/08/23 History mcg/actuation nasal Congestion spray,suspension albuterol sulfate 90 mcg/actuation 2 inh inhalation Q4-5H PRN Dyspnea 02/22/22 07/08/23 History aerosol inhaler losartan 50 mg tablet 100 mg PO QAM 02/22/22 07/08/23 History vit#24-iron amino acid 1 tablet PO DAILY 02/22/22 07/08/23 History chelat-folic acid 30 mg-975 mcg tablet atogepant 60 mg tablet (Qulipta) 60 mg PO DAILY 01/27/23 07/08/23 History progesterone micronized 200 mg 200 mg PO QHS 90 days #90 caps 01/30/23 07/08/23 Rx capsule (Prometrium) metoprolol succinate 25 mg 25 mg PO DAILY 05/12/23 07/08/23 History tablet,extended release 24 hr pantoprazole 40 mg tablet,delayed 40 mg PO HS 05/12/23 07/08/23 History release clindamycin HCl 150 mg capsule 150 mg PO Q6H 07/08/23 07/08/23 History ergocalciferol (vitamin D2) 1,250 1,250 mcg PO WEEKLY 07/08/23 07/08/23 History mcg (50,000 unit) capsule (Vitamin D2) hydrocodone 10 mg-acetaminophen 1 tablet PO Q6-8H PRN pain 07/08/23 07/08/23 History 325 mg tablet Results Review: All pre-operative results and documents have been reviewed as part of the pre-operative evaluation. [facility] Past Medical History Medical History (Updated 05/27/23 @ 13:36 by ROCK Dias) ADHD Anemia Anxiety Arthritis CTS (carpal tunnel syndrome) Fatty liver Hernia History of asthma Hypertension Migraines PONV (postoperative nausea and vomiting) Sciatica Surgical History Surgical History History of discectomy History of hysteroscopy (02/28/22) Hscope D&C / Polypectomy x 2 History of mastoidectomy History of tubal ligation Previous back surgery S/P arthroscopic surgery of right knee Family History Family History Mother Diabetes mellitus Daughter Diabetes mellitus Other Diabetes mellitus maternal aunt Social History Social History Smoking status: Smoker, status unknown Tobacco type: e-cigarettes/vaping Second hand tobacco smoke exposure: No Additional smoking assessment comments: vapes sometimes; contains nicotine Alcohol intake: current Alcohol use details: socially; maybe once a year Substance use: never Substance use type: does not use Living arrangements: with family Additional living arrangements comments: [facility]OUSE Occupation/Education: other Additional occupation/education comments: disabled Gender identity (if verbalized by the patient): Female Sexual Orientation (if Verbalized by the Patient): Straight or Heterosexual Spiritual care concerns: No Anes - Eval Final PreProcedure Day of Procedure 07/16/23 14:31 Patient weight: super morbidly obese Heart: regular rate and rhythm Lungs: clear to auscultation Airway: Mallampati scale class II Neurological: alert and oriented Last oral intake: >/= 8 hours ASA classification: III Emergent: no Anesthetic plan: proceed Anesthesia type and monitoring: general ETT
--- NOTE | 2023-07-31 14:03 | PC.NURSE ---
Pt states no changes in medications or health history since initial interview. New pre-op instructions reviewed with pt. Pt denies further questions at this time.
[2023-08-11] VITALS (11 sets, daily range): BP systolic 103–133; BP diastolic 67–87; PULSE 50–70; RESP 14–22; TEMP 36.1–36.4; O2SAT 94–100
--- NOTE | 2023-08-11 07:40 | PM.IMHP ---
H&P: HPI History of Present Illness Date/Time: 08/11/23 07:40 Chief Complaint: periumbilical hernia Narrative: Graciela is a 37 y/o female who presents to the office at the request of Dr. Bethea for evaluation of an umbilical hernia. She reports having abdominal pain after bowel movements. She denies seeing or feeling a bulge at her umbilicus. CT scan c/w fat containing umbilical hernia. Review of Systems Review of Systems: All systems reviewed & are unremarkable except as noted in HPI and below PMFSH Past Medical History Medical History ADHD Anemia Anxiety Arthritis CTS (carpal tunnel syndrome) Fatty liver Hernia History of asthma Hypertension Migraines PONV (postoperative nausea and vomiting) Sciatica Surgical History Surgical History History of discectomy History of hysteroscopy (02/28/22) Hscope D&C / Polypectomy x 2 History of mastoidectomy History of tubal ligation Previous back surgery S/P arthroscopic surgery of right knee Family History Family History Mother Diabetes mellitus Daughter Diabetes mellitus Other Diabetes mellitus maternal aunt Social History Social History Smoking status: Never smoker Tobacco type: e-cigarettes/vaping Second hand tobacco smoke exposure: Yes Additional smoking assessment comments: vapes sometimes; contains nicotine Alcohol intake: former Alcohol use details: holiday Substance use: never Substance use type: does not use Living arrangements: with family Additional living arrangements comments: [employer]OUSE Occupation/Education: other Additional occupation/education comments: disabled Gender identity (if verbalized by the patient): Female Sexual Orientation (if Verbalized by the Patient): Straight or Heterosexual Spiritual care concerns: No Meds Home Medications and Allergies Home Medications Medication Instructions Recorded Confirmed Type albuterol sulfate 2.5 mg/3 mL 2.5 mg inhalation Q4-5H PRN Dyspnea 10/08/19 07/31/23 History (0.083 %) solution for nebulization baclofen 10 mg tablet 20 mg PO TID PRN Spasms 10/17/21 07/31/23 History fluticasone propionate 50 2 spray intranasal DAILY PRN 01/08/22 07/31/23 History mcg/actuation nasal Congestion spray,suspension albuterol sulfate 90 mcg/actuation 2 inh inhalation Q4-5H PRN Dyspnea 02/22/22 07/31/23 History aerosol inhaler losartan 50 mg tablet 100 mg PO QAM 02/22/22 07/31/23 History vit#24-iron amino acid 1 tablet PO DAILY 02/22/22 07/31/23 History chelat-folic acid 30 mg-975 mcg tablet atogepant 60 mg tablet (Qulipta) 60 mg PO DAILY 01/27/23 07/31/23 History metoprolol succinate 25 mg 25 mg PO DAILY 05/12/23 07/31/23 History tablet,extended release 24 hr pantoprazole 40 mg tablet,delayed 40 mg PO HS 05/12/23 07/31/23 History release clindamycin HCl 150 mg capsule 150 mg PO Q6H 07/08/23 07/31/23 History ergocalciferol (vitamin D2) 1,250 1,250 mcg PO WEEKLY 07/08/23 07/31/23 History mcg (50,000 unit) capsule (Vitamin D2) hydrocodone 10 mg-acetaminophen 1 tablet PO Q6-8H PRN pain 07/08/23 07/31/23 History 325 mg tablet progesterone micronized 200 mg 200 mg PO QHS 90 days #90 caps 07/22/23 07/31/23 Rx capsule (Prometrium) Allergies Allergy/AdvReac Type Severity Reaction Status Date / Time prednisone Allergy Severe Itching Verified 07/31/23 14:01 Penicillins Allergy Mild Rash Verified 07/31/23 14:01 Exam Const: General: cooperative, comfortable and no acute distress Resp: Auscultation: clear to auscultation bilaterally Cardio: Rate: regular rate Rhythm: regular rhythm GI: Inspection: normal to inspection and distended GI Palp: Yes abdominal tenderness, Yes Soft to palpation and Yes Hernia presen
--- NOTE | 2023-08-11 08:16 | WPDHPUPDATE1 ---
History and Physical Update Update Date/Time: 08/11/23 08:16 History and Physical has been reviewed, including an updated exam of the patient. There are NO changes in the patient's condition. Risks, benefits, and alternatives have been discussed and questions answered. Patient agrees to proceed with procedure.
[2023-08-11] MEDS: KETOROLAC 15 MG/ML VIAL (*BKC) IV PUSH (09:45)
[2023-08-11] MEDS: LACTATED RINGERS 1,000 ML 30 ML IV CONT ×2 (09:45→11:42)
[2023-08-11] MEDS: ACETAMINOPHEN 500 MG TABLET 1000 MG PO (09:45)
--- NOTE | 2023-08-11 10:17 | WPDANESEPPF ---
Anes - Initial Pre Proc Eval Procedure: Operation Date: 08/11/23 11:00 Proposed Procedures p Robotic Umbilical Hernia Repair with Mesh - Nona Talavera MD Date/Time: 08/11/23 10:17 Surgeon: Nona Talavera MD Pre Op Diagnosis: Umb Hernia 3cm Patient Data Age: 37 Gender: F Height: 1.65 m Weight: 144.2 kg Last Vital Signs Temp 97.6 F 08/11/23 09:45 Pulse 70 08/11/23 09:45 Resp 14 08/11/23 09:45 BP 122/78 08/11/23 09:45 Pulse Ox 98 08/11/23 09:45 O2 Del Method Room Air 08/11/23 09:45 Allergies Allergy/AdvReac Type Severity Reaction Status Date / Time prednisone Allergy Severe Itching Verified 08/11/23 10:13 Penicillins Allergy Mild Rash Verified 08/11/23 10:13 Home Medications Medication Instructions Recorded Confirmed Type albuterol sulfate 2.5 mg/3 mL 2.5 mg inhalation Q4-5H PRN Dyspnea 10/08/19 07/31/23 History (0.083 %) solution for nebulization baclofen 10 mg tablet 20 mg PO TID PRN Spasms 10/17/21 07/31/23 History fluticasone propionate 50 2 spray intranasal DAILY PRN 01/08/22 07/31/23 History mcg/actuation nasal Congestion spray,suspension albuterol sulfate 90 mcg/actuation 2 inh inhalation Q4-5H PRN Dyspnea 02/22/22 07/31/23 History aerosol inhaler losartan 50 mg tablet 100 mg PO QAM 02/22/22 07/31/23 History vit#24-iron amino acid 1 tablet PO DAILY 02/22/22 07/31/23 History chelat-folic acid 30 mg-975 mcg tablet atogepant 60 mg tablet (Qulipta) 60 mg PO DAILY 01/27/23 07/31/23 History metoprolol succinate 25 mg 25 mg PO DAILY 05/12/23 08/11/23 History tablet,extended release 24 hr pantoprazole 40 mg tablet,delayed 40 mg PO HS 05/12/23 07/31/23 History release clindamycin HCl 150 mg capsule 150 mg PO Q6H 07/08/23 07/31/23 History ergocalciferol (vitamin D2) 1,250 1,250 mcg PO WEEKLY 07/08/23 07/31/23 History mcg (50,000 unit) capsule (Vitamin D2) hydrocodone 10 mg-acetaminophen 1 tablet PO Q6-8H PRN pain 07/08/23 08/11/23 History 325 mg tablet progesterone micronized 200 mg 200 mg PO QHS 90 days #90 caps 07/22/23 07/31/23 Rx capsule (Prometrium) Patient hx anesthesia problems: post op nausea/vomiting Family hx anesthesia problems: none Results Review: All pre-operative results and documents have been reviewed as part of the pre-operative evaluation. [facility] Past Medical History Medical History ADHD Anemia Anxiety Arthritis CTS (carpal tunnel syndrome) Fatty liver Hernia History of asthma Hypertension Migraines PONV (postoperative nausea and vomiting) Sciatica Surgical History Surgical History History of discectomy History of hysteroscopy (02/28/22) Hscope D&C / Polypectomy x 2 History of mastoidectomy History of tubal ligation Previous back surgery S/P arthroscopic surgery of right knee Family History Family History Mother Diabetes mellitus Daughter Diabetes mellitus Other Diabetes mellitus maternal aunt Social History Social History Smoking status: Never smoker Tobacco type: e-cigarettes/vaping Second hand tobacco smoke exposure: Yes Additional smoking assessment comments: vapes sometimes; contains nicotine Alcohol intake: former Alcohol use details: holiday Substance use: never Substance use type: does not use Living arrangements: with family Additional living arrangements comments: SPOUSE Occupation/Education: other Additional occupation/education comments: disabled Gender identity (if verbalized by the patient): Female Sexual Orientation (if Verbalized by the Patient): Straight or Heterosexual Spiritual care concerns: No Anes - Eval Final PreProcedure Day of Procedure 08/11/23 10:17 Patient weight: super morbidly obese Hear
[2023-08-11] MEDS: SCOPOLAMINE 1 MG PATCH 1 PATCH TRANSDERM (10:27)
[2023-08-11] MEDS: ceFAZolin 3 GM/D5W 100 ML 100 ML IVPB (10:31)
[2023-08-11] MEDS: BUPIVACAINE/EPINEPHRINE 0.5% 30 ML VIAL INFILTRATE (11:03)
--- NOTE | 2023-08-11 11:41 | W.PM.PROC2 ---
Procedure Note - Detailed Date of Procedure 08/11/23 Pre-op Diagnosis Umbilical Hernia 3 cm defect Post-op Diagnosis Same Procedure Performed Robotic assisted repair umbilical hernia, defect 3 cm, with mesh Surgeon Nona Talavera MD Anesthesia General Indications 37 y/o F presenting c moderate sized symptomatic umbilical hernia Findings 3 cm umbilical hernia c incarcerated preperitoneal fat Description of Procedure The patient was taken the operating room placed in the supine position. After adequate induction of general anesthesia, the patient was prepped and draped in normal sterile fashion. A time-out was then done to verify the patient's identity as well as the procedure being performed. I began by making a 5 mm incision in the left upper quadrant. Through this, a Veress needle was placed into the peritoneal cavity and CO2 gas was insufflated. After adequate pneumoperitoneum was achieved, a 5 mm trocar was placed through this incision. I then placed the laparoscope through this trocar site and under direct visualization I placed a 8 mm port in the left mid abdomen as well as an additional 8 mm port in the left lower abdomen. I then moved the camera to the lower port and replaced the 5 mm port with a 8 mm port. The robot was then docked to the 3 port sites. I then went to the robotic console. I began by identifying the hernia. A moderate-sized incarcerated umbilical hernia was noted. I then was able to reduce this hernia. The hernia was noted to contain a large amount of preperitoneal fat. Once reduced, I also reduced and dissected out the hernia sac. I then closed the approximately 3 cm defect with 0 strata fix suture. I then placed a 10 x 15 cm Ventralight mesh into the abdominal cavity. The positional stitch was placed in the middle of the mesh and brought up centering the mesh over the defect. Once this was done, I used 2 0 V lock suture x 2 to circumferentially suture the mesh to the abdominal wall. Once the mesh was completely sutured in, I was happy with our tension-free repair. The mesh was noted to have good overlap of the defect. At this point, the robot was undocked and all ports were removed. All port sites were then closed with 4 O Monocryl subcuticular suture. The patient tolerated the procedure well, is extubated in the operating room postoperative, and will be transferred to the recovery room in stable condition. Implants 10 x 15 cm mesh in the underlay position Estimated Blood Loss 10 Drains No Packing No Pathology None sent Complications No immediate complications Condition Stable Disposition PACU [facility] Billing Surgery - Charge Forward: Surgery Billing
[2023-08-11] MEDS: fentaNYL CITRATE INJ (*CRX) 100 MCG/2 ML VIAL 25 MCG IV PUSH ×2 (12:25→12:42)
[2023-08-11] MEDS: oxyCODONE HCL (*CRX) 5 MG TAB IR PO (13:34)
== END 2023-08-11 14:38 | disposition home or self-care (01) ==
PROVIDERS: PCP Physician Assistant; Visit Provider Surgery
PROC: (CPT 49593; principal; 2023-08-11 11:00)
DX: K42.9 Umbilical hernia without obstruction or gangrene (principal); I10 Essential (primary) hypertension; F90.9 Attention-deficit hyperactivity disorder, unspecified type; D64.9 Anemia, unspecified; F41.9 Anxiety disorder, unspecified; J45.909 Unspecified asthma, uncomplicated; F17.290 Nicotine dependence, other tobacco product, uncomplicated; E66.01 Morbid (severe) obesity due to excess calories; Z68.43 Body mass index [BMI] 50.0-59.9, adult; Z98.890 Other specified postprocedural states; Z98.1 Arthrodesis status; Z79.51 Long term (current) use of inhaled steroids; Z79.891 Long term (current) use of opiate analgesic
CPT/HCPCS: 49593; S2900; A9270; C1781; J0690; J1100; J1170; J1885; J2250; J2405; J2704; J3010; J7030; J7120

== ENCOUNTER 2023-08-29 19:13 | Emergency (ER) | payer OTHER, SELFPAY ==
--- NOTE | ~2023-08-29 | XR_ITS ---
EXAMINATION: XR chest 1V portable DATE: 08/29/2023 20:26 INDICATION: Shortness of breath. TECHNIQUE: A single frontal view of the chest was obtained. COMPARISON: Chest single view 02/05/2023 FINDINGS: There is no pneumonia, pleural effusion, or pneumothorax. The heart size is normal. IMPRESSION: 1. No acute cardiopulmonary disease. Reviewed, dictated and finalized at location E.
[2023-08-29 19:15] VITALS: BP 151/97; PULSE 79; RESP 20; TEMP 36.4; O2SAT 100
[2023-08-29 19:44] VITALS: O2SAT 100
--- NOTE | 2023-08-29 20:21 | ED.ALLEREA ---
HPI - Allergic Reaction General Chief complaint: Allergic Reaction Stated complaint: allergic reaction Time Seen by Provider: 08/29/23 20:05 Source: patient and family Mode of arrival: ambulatory Limitations: no limitations History of Present Illness HPI narrative: 37 YEARS OLD WHITE FEMALE CAME TO THE ED BY PRIVATE CAR COMPLAINING OF SORE SWOLLEN, NAUSEA, COUGHING, DIARRHEA. PATIENT BELIEVED THIS SYMPTOMS SECONDARY TO SOLU-MEDROL INTAKE YESTERDAY AT [facility]. PATIENT HAD ABDOMINAL SURGERY 3 WEEKS AGO, THE WOUND GOT INFECTED, STARTED ON KEFLEX 2 DAYS AGO, YESTERDAY STARTED HAVING RASH, WENT TO [facility], KEFLEX WAS THE SEED AND STARTED ON CLINDAMYCIN. PATIENT RECEIVED SOLU-MEDROL AND BENADRYL IN THE [facility] YESTERDAY. TODAY WORKUP WITH FEELING THAT HER THROAT IS SWOLLEN WITH NAUSEA A COUGH AND DIARRHEA. PATIENT BEEN TAKING PREDNISONE FOR A WHILE, IN THE LAST FEW TIMES GET REACTION TO IT IN THE FORM OF NAUSEA. SHE DENIES ANY SWOLLEN OR TROUBLE BREATHING WAS PREDNISONE IN THE PAST. HISTORY OF HYPERTENSION, ASTHMA ON ALBUTEROL INHALER. HAVE FLONASE IN THE PAST. PATIENT IS TELLING ME THAT SKIN RASH IS GONE Related Data Home Medications Medication Instructions Recorded Confirmed albuterol sulfate 2.5 mg/3 mL 2.5 mg inhalation Q4-5H PRN Dyspnea 10/08/19 07/31/23 (0.083 %) solution for nebulization baclofen 10 mg tablet 20 mg PO TID PRN Spasms 10/17/21 07/31/23 fluticasone propionate 50 2 spray intranasal DAILY PRN 01/08/22 07/31/23 mcg/actuation nasal Congestion spray,suspension albuterol sulfate 90 mcg/actuation 2 inh inhalation Q4-5H PRN Dyspnea 02/22/22 07/31/23 aerosol inhaler losartan 50 mg tablet 100 mg PO QAM 02/22/22 07/31/23 vit#24-iron amino acid 1 tablet PO DAILY 02/22/22 07/31/23 chelat-folic acid 30 mg-975 mcg tablet atogepant 60 mg tablet (Qulipta) 60 mg PO DAILY 01/27/23 07/31/23 metoprolol succinate 25 mg 25 mg PO DAILY 05/12/23 08/11/23 tablet,extended release 24 hr pantoprazole 40 mg tablet,delayed 40 mg PO HS 05/12/23 07/31/23 release clindamycin HCl 150 mg capsule 150 mg PO Q6H 07/08/23 07/31/23 ergocalciferol (vitamin D2) 1,250 1,250 mcg PO WEEKLY 07/08/23 07/31/23 mcg (50,000 unit) capsule (Vitamin D2) hydrocodone 10 mg-acetaminophen 1 tablet PO Q6-8H PRN pain 07/08/23 08/11/23 325 mg tablet Allergies Allergy/AdvReac Type Severity Reaction Status Date / Time prednisone Allergy Severe Itching Verified 08/29/23 19:21 Penicillins Allergy Mild Rash Verified 08/29/23 19:21 cephalexin Allergy Unknown Unknown Verified 08/29/23 19:21 Review of Systems Review of Systems: All systems reviewed & are unremarkable except as noted in HPI and below PMFSH Past Medical History Medical History ADHD Anemia Anxiety Arthritis CTS (carpal tunnel syndrome) Fatty liver Hernia History of asthma Hypertension Migraines PONV (postoperative nausea and vomiting) Sciatica Surgical History Surgical History History of discectomy History of hysteroscopy (02/28/22) Hscope D&C / Polypectomy x 2 History of mastoidectomy History of tubal ligation Previous back surgery S/P arthroscopic surgery of right knee Family History Family History Mother Diabetes mellitus Daughter Diabetes mellitus Other Diabetes mellitus maternal aunt Social History Social History Smoking status: Never smoker Tobacco type: e-cigarettes/vaping Second hand tobacco smoke exposure: Yes Additional smoking assessment comments: vapes sometimes; contains nicotine Alcohol intake: former Alcohol use details: holiday Substance use: never Substance use type: does not use Living arrangements: with family Additional living arrangements comments: SPOUSE Occupation/Edu
[2023-08-29] MEDS: diphenhydrAMINE HCl CAP 25 MG CAPSULE 50 MG PO (20:25)
[2023-08-29] MEDS: EPINEPHrine HCL INJ 1 MG/ML AMPUL 0.3 MG IM (20:37)
--- NOTE | 2023-08-29 20:37 | PC.NURSE ---
This RN went to go give the ordered INJ of epi. During first administration when I went to draw it up and flipped ampul upset down the medication came out of the bottle so I overrode another bottle of the epi to administer it to patient. Only one dose of epi was given at this time.
[2023-08-29] MEDS: EPINEPHrine HCL INJ 1 MG/ML AMPUL 0.5 MG IM (21:11)
[2023-08-29 22:20] LABS: Influenza A QL RT-PCR Negative (Negative); Influenza B QL RT-PCR Negative (Negative); RSV RNA, RT-PCR Negative (Negative); SARS-CoV-2 RNA PCR Negative (Negative)
== END 2023-08-29 21:32 | disposition home or self-care (01) ==
PROVIDERS: Emergency Provider Emergency Medicine; PCP Physician Assistant
DX: J45.901 Unspecified asthma with (acute) exacerbation (principal); T78.40XA Allergy, unspecified, initial encounter; F41.9 Anxiety disorder, unspecified; I10 Essential (primary) hypertension; Z20.822 Contact with and (suspected) exposure to COVID-19
CPT/HCPCS: 71045; 87637; 96372; 99284; A9270; J0171

== ENCOUNTER 2023-09-22 17:56 | Emergency (ER) | payer OTHER, SELFPAY ==
--- NOTE | ~2023-09-22 | XR_ITS ---
EXAM: XR knee LT min 4V DATE: 09/22/2023 18:25 HISTORY: anterior and posterior knee pain X 6 DAYS . COMPARISON: 10/08/2019. FINDINGS: Normal mineralization. No fracture or dislocation. No lytic or blastic lesion. Tricompartm ental osteoarthritic arthritis, moderate in the medial compartment. Small volume joint fluid. No eros ion or periosteal change. Soft tissues within normal limits. IMPRESSION: No acute osseous finding in the left knee. Reviewed, dictated and finalized at location [facility].
[2023-09-22 17:57] VITALS: BP 133/82; PULSE 82; RESP 20; TEMP 36.8; O2SAT 100
--- NOTE | 2023-09-22 18:00 | ED.EXTPRO ---
HPI - Extremity Problem General Chief complaint: Extremity Injury, Lower Stated complaint: left knee pain Time Seen by Provider: 09/22/23 18:01 Focused HPI: Graciela is a 37-year-old female patient presenting to the ER today with complaints of left knee anterior and posterior pain. She reports this has been going on for 6 days. States today she started having some pain radiating down her leg and causing some numbness and tingling in her left foot. No history of Cheung cyst in the past. States that she has injured the left knee in the past and had a crack in her knee joint. General: Well-developed, morbidly obese, in no apparent distress Head: Normocephalic, atraumatic. Cardio: Regular rate and rhythm, s1 and s2 normal, no murmur appreciated. Resp: Clear to auscultation bilaterally, no rhonchi, rales, wheezing or rubs. Musculoskeletal: No deformity,tender to palpation over the anterior and posterior knee, grossly normal range of motion, pain with bearing weight, muscle strength strong and equal, peripheral pulse strong, no edema, no cyanosis, normal gait and station Patient screened in triage and initial orders placed. Additional care and disposition to be based upon diagnostic testing and treatment. Source: patient Mode of arrival: ambulatory Limitations: no limitations Related Data Home Medications Medication Instructions Recorded Confirmed albuterol sulfate 2.5 mg/3 mL 2.5 mg inhalation Q4-5H PRN Dyspnea 10/08/19 09/01/23 (0.083 %) solution for nebulization baclofen 10 mg tablet 20 mg PO TID PRN Spasms 10/17/21 09/01/23 fluticasone propionate 50 2 spray intranasal DAILY PRN 01/08/22 09/01/23 mcg/actuation nasal Congestion spray,suspension albuterol sulfate 90 mcg/actuation 2 inh inhalation Q4-5H PRN Dyspnea 02/22/22 09/01/23 aerosol inhaler losartan 50 mg tablet 100 mg PO QAM 02/22/22 09/01/23 vit#24-iron amino acid 1 tablet PO DAILY 02/22/22 09/01/23 chelat-folic acid 30 mg-975 mcg tablet atogepant 60 mg tablet (Qulipta) 60 mg PO DAILY 01/27/23 09/01/23 metoprolol succinate 25 mg 25 mg PO DAILY 05/12/23 09/01/23 tablet,extended release 24 hr pantoprazole 40 mg tablet,delayed 40 mg PO HS 05/12/23 09/01/23 release clindamycin HCl 150 mg capsule 150 mg PO Q6H 07/08/23 09/01/23 ergocalciferol (vitamin D2) 1,250 1,250 mcg PO WEEKLY 07/08/23 09/01/23 mcg (50,000 unit) capsule (Vitamin D2) hydrocodone 10 mg-acetaminophen 1 tablet PO Q6-8H PRN pain 07/08/23 09/01/23 325 mg tablet Allergies Allergy/AdvReac Type Severity Reaction Status Date / Time prednisone Allergy Severe Itching Verified 09/22/23 18:45 Penicillins Allergy Mild Rash Verified 09/22/23 18:45 cephalexin Allergy Unknown Unknown Verified 09/22/23 18:45 PMFSH Past Medical History Medical History ADHD Anemia Anxiety Arthritis CTS (carpal tunnel syndrome) Fatty liver Hernia History of asthma Hypertension Migraines PONV (postoperative nausea and vomiting) Sciatica Surgical History Surgical History History of discectomy History of hysteroscopy (02/28/22) Hscope D&C / Polypectomy x 2 History of mastoidectomy History of tubal ligation History of umbilical hernia repair Robotic assisted repair umbilical hernia, defect 3 cm, with mesh 08/11/23 Previous back surgery S/P arthroscopic surgery of right knee Family History Family History Mother Diabetes mellitus Daughter Diabetes mellitus Other Diabetes mellitus maternal aunt Social History Social History Smoking status: Smoker, status unknown Tobacco type: e-cigarettes/vaping Second hand tobacco smoke exposure: Yes Additional smoking assessment comments: vapes sometimes; contains nicotine Alcohol intake: former Al
--- NOTE | 2023-09-22 19:08 | ED.LOWEXIN ---
HPI - Extremity Injury (Lower) General Chief Complaint: Extremity Injury, Lower Stated Complaint: left knee pain Time Seen by Provider: 09/22/23 18:01 Source: patient Mode of arrival: ambulatory Limitations: no limitations History of Present Illness HPI Narrative: 37-year-old female presents to the emergency department for left knee pain for 6 days. Patient denies injury or trauma. She is reporting pain throughout the knee. States she has noticed some associated swelling to the knee but has not noticed any to her lower extremity. No fever, nausea or vomiting. She does report a history of knee pain. Related Data Home Medications Medication Instructions Recorded Confirmed albuterol sulfate 2.5 mg/3 mL 2.5 mg inhalation Q4-5H PRN Dyspnea 10/08/19 09/01/23 (0.083 %) solution for nebulization baclofen 10 mg tablet 20 mg PO TID PRN Spasms 10/17/21 09/01/23 fluticasone propionate 50 2 spray intranasal DAILY PRN 01/08/22 09/01/23 mcg/actuation nasal Congestion spray,suspension albuterol sulfate 90 mcg/actuation 2 inh inhalation Q4-5H PRN Dyspnea 02/22/22 09/01/23 aerosol inhaler losartan 50 mg tablet 100 mg PO QAM 02/22/22 09/01/23 vit#24-iron amino acid 1 tablet PO DAILY 02/22/22 09/01/23 chelat-folic acid 30 mg-975 mcg tablet atogepant 60 mg tablet (Qulipta) 60 mg PO DAILY 01/27/23 09/01/23 metoprolol succinate 25 mg 25 mg PO DAILY 05/12/23 09/01/23 tablet,extended release 24 hr pantoprazole 40 mg tablet,delayed 40 mg PO HS 05/12/23 09/01/23 release clindamycin HCl 150 mg capsule 150 mg PO Q6H 07/08/23 09/01/23 ergocalciferol (vitamin D2) 1,250 1,250 mcg PO WEEKLY 07/08/23 09/01/23 mcg (50,000 unit) capsule (Vitamin D2) hydrocodone 10 mg-acetaminophen 1 tablet PO Q6-8H PRN pain 07/08/23 09/01/23 325 mg tablet Allergies Allergy/AdvReac Type Severity Reaction Status Date / Time prednisone Allergy Severe Itching Verified 09/22/23 18:45 Penicillins Allergy Mild Rash Verified 09/22/23 18:45 cephalexin Allergy Unknown Unknown Verified 09/22/23 18:45 Review of Systems Review of Systems: CONSTITUTIONAL: Denies fever, chills, or sweats. EYES: Denies visual changes, redness, or discharge. ENT: Denies rhinorrhea, congestion, sore throat, or otalgia. CARDIOVASCULAR: Denies chest pain, palpitations, or edema. RESPIRATORY: Denies cough or dyspnea. GASTROINTESTINAL: Denies abdominal pain, nausea, vomiting, or diarrhea. GENITOURINARY: Denies dysuria or hematuria. SKIN: Denies rash or itching. MUSCULOSKELETAL: See HPI NEUROLOGIC: Denies headache, numbness, or weakness. PSYCHIATRIC: Denies anxiety or depression. [facility] Past Medical History Medical History ADHD Anemia Anxiety Arthritis CTS (carpal tunnel syndrome) Fatty liver Hernia History of asthma Hypertension Migraines PONV (postoperative nausea and vomiting) Sciatica Surgical History Surgical History History of discectomy History of hysteroscopy (02/28/22) Hscope D&C / Polypectomy x 2 History of mastoidectomy History of tubal ligation History of umbilical hernia repair Robotic assisted repair umbilical hernia, defect 3 cm, with mesh 08/11/23 Previous back surgery S/P arthroscopic surgery of right knee Family History Family History Mother Diabetes mellitus Daughter Diabetes mellitus Other Diabetes mellitus maternal aunt Social History Social History Smoking status: Smoker, status unknown Tobacco type: e-cigarettes/vaping Second hand tobacco smoke exposure: Yes Additional smoking assessment comments: vapes sometimes; contains nicotine Alcohol intake: former Alcohol use details: holiday Substance use: never Substance use type: does not use Living arrangements:
== END 2023-09-22 19:45 | disposition home or self-care (01) ==
PROVIDERS: Emergency Provider Physician Assistant; PCP Physician Assistant
DX: M25.562 Pain in left knee (principal); J45.909 Unspecified asthma, uncomplicated; I10 Essential (primary) hypertension; M19.90 Unspecified osteoarthritis, unspecified site; F17.290 Nicotine dependence, other tobacco product, uncomplicated; Z79.899 Other long term (current) drug therapy
CPT/HCPCS: 73564; 99283